=== PATIENT | male | born 1945 | race Caucasian/White ===

== ENCOUNTER 2018-10-05 14:52 | Inpatient (IN) | payer MEDICARE, BC ==
[~2018-10-05] VITALS: Ht 175.3 cm; Wt 114.6 kg
[2018-10-05] VITALS (8 sets, daily range): BP systolic 79–125; BP diastolic 44–77
[~2018-10-05 14:52] MED LIST: ALBU8HFA PO; AMIO200T36 PO; ASPI81TA52 PO; ATOR40TA7 PO; CARV-49 PO; CLOP75TA15 PO; DIPH25CA83 PO; IPRA3AMP31 INH; LEVO175T7 PO; LIDOcaine 2% (20mg/ml) 5ml vial ONE; NORepinephrine bitartrate 8 MG in NS 250 ML BAG (32 mcg/ml) IV ONE; SPIR50TA5 PO
--- NOTE | 2018-10-05 15:15 | NUR ---
Patient c/o increased left leg pain, burning in nature. Spoke with Dr. Roth regarding possible need for lidocaine 100 mg IO now. Unsure if patient had received lidocaine when IO was initiated. Dr. roth also stated to place verbal order for Fentanyl [address] Blas stated that he would be performing central line placement, Central line placement set up and ready for MD in room. CVP monitoring set up and ready after insertion. Will place x ray order for post central line placement per MD.
--- NOTE | 2018-10-05 15:20 | NUR ---
Lidocaine administered through IO. Will continue to monitor patients status.
[2018-10-05] MEDS ORDERED: fentaNYL/PF 50MCG/1 ML 2ML syringe ONE (15:24)
[2018-10-05] MEDS ORDERED: KETAMINE IV ONE (15:25)
[2018-10-05] MEDS ORDERED: fentaNYL/PF 50MCG/1 ML 2ML syringe IV ONE (15:25)
[2018-10-05] MEDS ORDERED: NORMAL SALINE IV ONE (15:25)
[2018-10-05] MEDS ORDERED: vancomycin/NS 1 GM ADD-VANTAGE 250 ML X 1 DOSE IV ONE (15:30)
[2018-10-05 15:31] LABS: CLARITY,URINE SLIGHTLY CLOUDY (Clear); COLOR,URINE YELLOW (Yellow); GLUCOSE, URINE NEGATIVE (Neg); KETONES,URINE TRACE mg/dl (Neg); LEUKOCYTE ESTERASE ,URINE NEGATIVE (Neg); NITRITES, URINE NEGATIVE (Neg); OCCULT BLOOD,URINE NEGATIVE (Neg); PH,URINE 5.5 (4.8-8.0); PROTEIN,URINE TRACE mg/dl (Neg); UROBILINOGEN,URINE 0.2 E.U/dL (0.2-1.0)
[2018-10-05 15:32] LABS: UA COLLECTION TYPE STRAIGHT CATH
[2018-10-05] MEDS ORDERED: LIDOcaine 2% (20 mg/ml) 5ml cardiac syringe IV STA (15:36)
[2018-10-05 15:43] LABS: BACTERIA,URINE 2+ /HPF (Neg); CELLULAR CAST 0-4 /LPF (NEGATIVE); MUCUS STRANDS FEW /LPF (Neg); SQUAMOUS EPITHELIAL CELL,UR FEW /LPF (FEW)
[2018-10-05 15:44] LABS: RBC,URINE 0-2 /HPF (0-2); RENAL CELLS, URINE FEW /HPF; TRANSITIONAL EPI CELLS,URINE FEW /HPF; WBC,URINE 0-4 /HPF (0-4)
[2018-10-05] MEDS: NORepinephrine 8mg/ 250ml NS 250 ML IV SCH ×2 (15:49→16:25)
--- NOTE | 2018-10-05 16:00 | NUR ---
Spoke with Dr. Roth regarding goal for levophed titration, He stated to keep SBP 90 mmHg and/or a MAP of 65 or greater.
[2018-10-05] MEDS ORDERED: normal saline 500ml IV soln 500 ML IV ONE (16:05)
--- NOTE | 2018-10-05 16:07 | NUR ---
Dr. Blas stated central line placement good and ok to start IV fluids.
[2018-10-05 16:14] LABS: BASOPHILS % (AUTO) 0.2 % (0-1); EOSINOPHILS % (AUTO) 0.1 % (0-6); HEMATOCRIT 41.3 % (42.0-52.0); HEMOGLOBIN 13.9 g/dl (14.0-17.9); LYMPHOCYTES # (AUTO) 0.5 X10'3 (1.1-4.8); LYMPHOCYTES % (AUTO) 3.2 % (21-51); MEAN CORPUSCULAR HEMOGLOBIN 33.9 PG (27.0-31.0); MEAN CORPUSCULAR HGB CONC 33.6 g/dL (33.0-36.5); MEAN CORPUSCULAR VOLUME 100.8 FL (78-98); MEAN PLATELET VOLUME 8.2 FL (7.4-10.4); MONOCYTES # (AUTO) 0.6 X10'3 (0-0.9); MONOCYTES % (AUTO) 4.1 % (2-12); NEUTROPHILS # (AUTO) 13.1 X10'3 (1.8-7.7); NEUTROPHILS % (AUTO) 92.4 % (42-75); PLATELET COUNT 170 X10'3 (140-440); RED BLOOD COUNT 4.09 X10'6 (4.70-6.10); RED CELL DISTRIBUTION WIDTH 15.8 % (11.5-14.5); WHITE BLOOD COUNT 14.2 X10'3 (4.5-11.0)
[2018-10-05 16:35] LABS: ALANINE AMINOTRANSFERASE 23 U/L (12-78); ALBUMIN 2.2 G/DL (3.4-5.0); ALBUMIN/GLOBULIN RATIO 0.8 (1.1-1.5); ALKALINE PHOSPHATASE 55 IU/L (46-116); ANION GAP 7 (8-16); ASPARTATE AMINO TRANSFERASE 21 U/L (10-37); BILIRUBIN,TOTAL 2.6 MG/DL (0.1-1.0); BLOOD UREA NITROGEN 53 MG/DL (7-18); BUN/CREATININE RATIO 18.9 (5.4-32.0); CALCIUM 8.1 MG/DL (8.5-10.1); CHLORIDE 97 MMOL/L (99-107); CREATININE 2.81 MG/DL (0.60-1.10); GLUCOSE 84 MG/DL (70-104); SODIUM 130 MMOL/L (135-145); TOTAL CARBON DIOXIDE 25.9 MMOL/L (24-32); eGFR 22 ML/MIN
[2018-10-05 16:37] LABS: PARTIAL THROMBOPLASTIN TIME 32 SECONDS (22-32)
--- NOTE | 2018-10-05 16:42 | NUR ---
Patient received a total of 2.5 L NS bolus, 1 L NS bolus from EMS and 1.5 L NS bolus ordered by Dr. Roth.
[2018-10-05 16:46] LABS: BURR CELLS 1+; PLATELET ESTIMATE NORMAL; TOTAL CELLS COUNTED 100
[2018-10-05] MEDS ORDERED: FLUT1DIS7 INH (16:48)
[2018-10-05] MEDS ORDERED: TIOT18CA3 IH (16:48)
[2018-10-05] MEDS ORDERED: CARV-49 PO (16:49)
[2018-10-05] MEDS ORDERED: FLUT1DIS4 INH (16:49)
[2018-10-05] MEDS ORDERED: SPIR50TA5 PO (16:50)
[2018-10-05] MEDS ORDERED: ATOR80TA PO (16:50)
[2018-10-05] MEDS ORDERED: AMIO200T27 PO (16:50)
[2018-10-05] MEDS ORDERED: FEXO180T94 PO (16:51)
[2018-10-05] MEDS ORDERED: FLO0.4C PO (16:51)
[2018-10-05] MEDS ORDERED: FURO-149 PO (16:51)
[2018-10-05] MEDS ORDERED: ASPI81TA30 PO (16:52)
[2018-10-05] MEDS ORDERED: LEVO175T2 PO (16:53)
[2018-10-05] MEDS ORDERED: IPRA3AMP31 IH (16:53)
[2018-10-05] MEDS ORDERED: POTA20TA19 PO (16:54)
[2018-10-05] MEDS ORDERED: TRAM50TA2 PO (16:54)
[2018-10-05] MEDS ORDERED: NORepinephrine 8mg/ 250ml NS 250 ML IV PRN ×2 (17:08→17:53)
[2018-10-05] MEDS ORDERED: potassium Cl 20mEq/100mL bag 100 ML IV PRN ×2 (17:10)
[2018-10-05] MEDS ORDERED: potassium Cl 20 mEq SR tablet PO PRN ×2 (17:10)
[2018-10-05] MEDS ORDERED: potassium CL 10mEq/100ml bag 100 ML IV PRN ×2 (17:10)
[2018-10-05] MEDS ORDERED: acetaminophen 325mg tablet PO PRN ×2 (17:10)
[2018-10-05] MEDS ORDERED: morphine 2 MG/ML inj. syringe IV PRN (17:10)
[2018-10-05] MEDS ORDERED: vancomycin/NS 1 GM ADD-VANTAGE 250 ML IV PRN (17:10)
[2018-10-05] MEDS ORDERED: morphine 4 MG/ML inj SYRINge IV PRN (17:10)
[2018-10-05 17:36] LABS: ABG BASE EXCESS -4.1 mmol/L (-2.0-3.0); ABG HCO3 20.1 mmol/L (22.0-26.0); ABG OXYGEN SATURATION 95.5 % (95-98); ABG PCO2 (T) 34.6 mmHg (35.0-48.0); ABG PH (T) 7.382 (7.350-7.450); ABG PO2 (T) 83.9 mmHg (83-108); ALLEN'S TEST Positive; FCOHb 2.3 % (0.5-1.5); FLOW 2 L/min; FMetHb 0.1 % (0.3-1.12); FO2Hb 93.2 % (94-100); TOTAL HEMOGLOBIN 14.8 G/dl (14.0-18.0)
[2018-10-05] MEDS: DOBUTamine-DoBUTrex 500mg/D5W 250 ML IV SCH (17:57)
[2018-10-05] MEDS: normal saline 1000ml 1,000 ML IV SCH (18:11)
[2018-10-05 18:25] LABS: TOTAL PROTEIN,URINE RANDOM 42.4 MG/DL
[2018-10-05] MEDS: docusate sod 100mg capsule PO SCH (19:43)
[2018-10-05] MEDS: heparin, porcine 5000 units/ml vial SQ SCH (19:43)
[2018-10-05 20:36] LABS: OXYGEN SATURATION (MIXED VEN) 64.5 % (60-80); PO2 MIXED VENOUS (TEMP COR) 37.1 mmHg (35-46)
[2018-10-05] MEDS: sennosides/docusate sodium tablet PO SCH (20:53)
[2018-10-05] MEDS: HYDROcodone/acetaminophen 10/325mg tab PO PRN (20:58)
[2018-10-05] MEDS: ondansetron/PF 4mg/2ml inj IV PRN (21:16)
[2018-10-05] MEDS ORDERED: ipratropium/albuterol 3ml nebule IH PRN (21:30)
[2018-10-05] MEDS ORDERED: ipratropium/albuterol 3ml nebule ONE (21:57)
[2018-10-05] MEDS ORDERED: HYDROmorphone 1 mg/ml syringe IV ONE (22:50)
[2018-10-06] VITALS (27 sets, daily range): BP systolic 82–114; BP diastolic 48–70
[2018-10-06] MEDS: NORepinephrine 8mg/ 250ml NS 250 ML IV SCH ×5 (00:02→21:40)
[2018-10-06] MEDS: VANCOMYCIN LEVEL IV SCH (02:44)
[2018-10-06] MEDS: normal saline 1000ml 1,000 ML IV SCH ×2 (02:45→14:45)
[2018-10-06 03:04] LABS: BASOPHILS % (AUTO) 0.3 % (0-1); EOSINOPHILS % (AUTO) 0 % (0-6); HEMATOCRIT 40.5 % (42.0-52.0); HEMOGLOBIN 13.7 g/dl (14.0-17.9); LYMPHOCYTES # (AUTO) 0.3 X10'3 (1.1-4.8); LYMPHOCYTES % (AUTO) 2.5 % (21-51); MEAN CORPUSCULAR HEMOGLOBIN 33.9 PG (27.0-31.0); MEAN CORPUSCULAR HGB CONC 33.8 g/dL (33.0-36.5); MEAN CORPUSCULAR VOLUME 100.2 FL (78-98); MEAN PLATELET VOLUME 8.4 FL (7.4-10.4); MONOCYTES # (AUTO) 0.5 X10'3 (0-0.9); MONOCYTES % (AUTO) 3.9 % (2-12); NEUTROPHILS # (AUTO) 12.9 X10'3 (1.8-7.7); NEUTROPHILS % (AUTO) 93.3 % (42-75); PLATELET COUNT 157 X10'3 (140-440); RED BLOOD COUNT 4.04 X10'6 (4.70-6.10); RED CELL DISTRIBUTION WIDTH 16.4 % (11.5-14.5); WHITE BLOOD COUNT 13.9 X10'3 (4.5-11.0)
[2018-10-06 03:32] LABS: ALANINE AMINOTRANSFERASE 26 U/L (12-78); ALBUMIN 2.1 G/DL (3.4-5.0); ALBUMIN/GLOBULIN RATIO 0.7 (1.1-1.5); ALKALINE PHOSPHATASE 58 IU/L (46-116); ANION GAP 8 (8-16); ASPARTATE AMINO TRANSFERASE 25 U/L (10-37); BILIRUBIN,TOTAL 1.7 MG/DL (0.1-1.0); BLOOD UREA NITROGEN 56 MG/DL (7-18); BUN/CREATININE RATIO 19.5 (5.4-32.0); CALCIUM 7.7 MG/DL (8.5-10.1); CHLORIDE 99 MMOL/L (99-107); CREATININE 2.87 MG/DL (0.60-1.10); GLUCOSE 96 MG/DL (70-104); MAGNESIUM 1.7 MG/DL (1.5-2.4); PHOSPHORUS 4.7 MG/DL (2.3-4.5); POTASSIUM 5.2 MMOL/L (3.5-5.1); SODIUM 131 MMOL/L (135-145); TOTAL PROTEIN 5.1 G/DL (6.4-8.2); VANCOMYCIN,RANDOM 14.1 UG/ML; eGFR 22 ML/MIN
[2018-10-06] MEDS: DOBUTamine-DoBUTrex 500mg/D5W 250 ML IV SCH ×2 (06:44→19:39)
[2018-10-06] MEDS: docusate sod 100mg capsule PO SCH ×2 (07:23→19:41)
[2018-10-06] MEDS: amiodarone 200mg tablet PO SCH (07:23)
[2018-10-06] MEDS: loratadine 10mg tablet PO SCH (07:23)
[2018-10-06] MEDS: atorvastatin 20mg tablet PO SCH (07:23)
[2018-10-06] MEDS: tamsulosin 0.4mg capsule PO SCH (07:23)
[2018-10-06] MEDS: levoTHYROXINE 175mcg tablet PO SCH (07:24)
[2018-10-06] MEDS: heparin, porcine 5000 units/ml vial SQ SCH ×2 (07:24→19:41)
[2018-10-06] MEDS: aspirin 81mg tab.chew PO SCH (07:31)
[2018-10-06] MEDS: budesonide 0.5mg/2ml UD nebule IH SCH ×2 (08:00→19:28)
[2018-10-06] MEDS ORDERED: carvedilol 6.25mg tablet PO SCH (08:00)
[2018-10-06] MEDS: ipratropium 0.5 MG/2.5ML nebule IH SCH ×3 (08:00→19:28)
[2018-10-06] MEDS: albuterol 2.5 MG/3 ML nebule NEB SCH ×3 (08:00→19:28)
[2018-10-06] MEDS: potassium Cl 20 mEq SR tablet PO SCH (08:00)
[2018-10-06] MEDS ORDERED: furosemide 40mg tablet PO SCH (08:00)
[2018-10-06] MEDS ORDERED: spironolactone 50 MG tablet PO SCH (08:00)
[2018-10-06] MEDS: HYDROcodone/acetaminophen 10/325mg tab PO PRN ×2 (09:11→20:27)
[2018-10-06] MEDS ORDERED: NORepinephrine 8mg/ 250ml NS 250 ML IV ONE (11:42)
[2018-10-06] MEDS: HYDROmorphone 1 mg/ml syringe IV PRN ×2 (12:47→22:06)
[2018-10-06] MEDS ORDERED: piperacillin/tazo 3.375gm/50ml 50 ML IV SCH (12:55)
[2018-10-06] MEDS: CefTRIAXone 2gm/D5W 50ml 50 ML IV SCH (14:02)
[2018-10-06] MEDS: linezolid 600mg tablet PO SCH ×2 (14:33→19:41)
--- NOTE | 2018-10-06 14:37 | NUR ---
Patient presented to ED with recurrent BLE cellulitis, h/o CHF, COPD, CAD, and CABG, every day smoker and h/o heavy EtOH. Patient has increased protein needs r/t infection. Appetite is fair, he ate 50% of his meat at breakfast. Diet was changed after breakfast to pureed by RN. with change in diet hopefully will improve PO intake. Pt very sleepy when seen by RD, will attempt bedside interview tomorrow and to provide high protein education. Recommend: 1. continue pureed diet 2. provide high protein ed and monitor need for ONS or additional protein 3. Weight per rx Addendum: 10/06/18 at [address] Amended: Links added.
--- NOTE | 2018-10-06 19:18 | NUR ---
MRSA nare cx to lab. Patient is alert and oriented. BP cuff to RUE 73/50 (59), LUE 89/50 (68), exchanged for a large cuff RUE 90/57 (68), LUE 75/50 (58). Dobutamine at 5 ug/kg/min. non-titratable per order. Levophed 29 ug/min - titrating for MAP 60 mmhg per order. Mentation WNL. Breathing is wheezy at times. Lungs B/L sound wet. Strong cough and swallows sputum. B/L LE are barajas red from mid thigh down equally. Hot to the touch mid thigh to mid calf B/L. Mid calf to toes cool to the touch though reddened. See pictures in bedside chart for wounds/discoloration - no changes from the pictures. Wounds LINE SERVER. right top of foot with yellow/green tissue. Quarter sized open area to right medial calf - [place], large bruising across abdomen greater as move to left side of abdomen. Patient states "it has been like that for weeks". No acute changes from that given in report. U/O minimal, dark belem. Patient ate pudding dish without complication. Refused the meal due to "too bland". I offered Mrs. Hanley however patient refused. All procedures explained prior to performing.
[2018-10-06] MEDS: lactobacillus rhamnosus 10,000 MMU CELLS/CAPSULE PO SCH (19:41)
[2018-10-06] MEDS: sennosides/docusate sodium tablet PO SCH (20:27)
[2018-10-07] VITALS (26 sets, daily range): BP systolic 73–124; BP diastolic 40–70
[2018-10-07] MEDS: NORepinephrine 8mg/ 250ml NS 250 ML IV SCH ×3 (02:14→15:22)
[2018-10-07] MEDS: albuterol 2.5 MG/3 ML nebule NEB SCH ×3 (03:10→14:00)
[2018-10-07] MEDS: VANCOMYCIN LEVEL IV SCH (03:10)
[2018-10-07] MEDS: ipratropium 0.5 MG/2.5ML nebule IH SCH ×3 (03:11→14:00)
[2018-10-07] MEDS: HYDROmorphone 1 mg/ml syringe IV PRN ×6 (03:41→19:38)
[2018-10-07 03:48] LABS: BASOPHILS # (AUTO) 0.1 X10'3 (0-0.2); BASOPHILS % (AUTO) 0.5 % (0-1); EOSINOPHILS % (AUTO) 0.1 % (0-6); HEMATOCRIT 39.2 % (42.0-52.0); HEMOGLOBIN 12.9 g/dl (14.0-17.9); LYMPHOCYTES # (AUTO) 0.3 X10'3 (1.1-4.8); LYMPHOCYTES % (AUTO) 2.8 % (21-51); MEAN CORPUSCULAR HEMOGLOBIN 33.6 PG (27.0-31.0); MEAN CORPUSCULAR HGB CONC 32.8 g/dL (33.0-36.5); MEAN CORPUSCULAR VOLUME 102.3 FL (78-98); MEAN PLATELET VOLUME 8.6 FL (7.4-10.4); MONOCYTES # (AUTO) 0.6 X10'3 (0-0.9); MONOCYTES % (AUTO) 5.6 % (2-12); NEUTROPHILS # (AUTO) 10.3 X10'3 (1.8-7.7); PLATELET COUNT 153 X10'3 (140-440); RED BLOOD COUNT 3.83 X10'6 (4.70-6.10); RED CELL DISTRIBUTION WIDTH 16.8 % (11.5-14.5); WHITE BLOOD COUNT 11.4 X10'3 (4.5-11.0)
[2018-10-07 04:03] LABS: ALANINE AMINOTRANSFERASE 28 U/L (12-78); ALBUMIN 1.8 G/DL (3.4-5.0); ALBUMIN/GLOBULIN RATIO 0.6 (1.1-1.5); ALKALINE PHOSPHATASE 59 IU/L (46-116); ANION GAP 7 (8-16); ASPARTATE AMINO TRANSFERASE 24 U/L (10-37); BILIRUBIN,TOTAL 0.9 MG/DL (0.1-1.0); BLOOD UREA NITROGEN 57 MG/DL (7-18); BUN/CREATININE RATIO 19.9 (5.4-32.0); CALCIUM 7.7 MG/DL (8.5-10.1); CHLORIDE 101 MMOL/L (99-107); CREATININE 2.87 MG/DL (0.60-1.10); GLUCOSE 122 MG/DL (70-104); MAGNESIUM 1.9 MG/DL (1.5-2.4); PHOSPHORUS 4.3 MG/DL (2.3-4.5); POTASSIUM 5.2 MMOL/L (3.5-5.1); SODIUM 131 MMOL/L (135-145); TOTAL CARBON DIOXIDE 23.1 MMOL/L (24-32); TOTAL PROTEIN 4.9 G/DL (6.4-8.2); VANCOMYCIN,RANDOM 10.3 UG/ML; eGFR 22 ML/MIN
[2018-10-07] MEDS: budesonide 0.5mg/2ml UD nebule IH SCH ×2 (07:37→19:21)
[2018-10-07] MEDS: potassium Cl 20 mEq SR tablet PO SCH (08:00)
[2018-10-07] MEDS: atorvastatin 20mg tablet PO SCH (09:42)
[2018-10-07] MEDS: docusate sod 100mg capsule PO SCH ×2 (09:42→19:38)
[2018-10-07] MEDS: lactobacillus rhamnosus 10,000 MMU CELLS/CAPSULE PO SCH ×2 (09:42→19:38)
[2018-10-07] MEDS: aspirin 81mg tab.chew PO SCH (09:42)
[2018-10-07] MEDS: linezolid 600mg tablet PO SCH ×2 (09:42→19:38)
[2018-10-07] MEDS: amiodarone 200mg tablet PO SCH (09:42)
[2018-10-07] MEDS: CefTRIAXone 2gm/D5W 50ml 50 ML IV SCH (09:42)
[2018-10-07] MEDS: levoTHYROXINE 175mcg tablet PO SCH (09:43)
[2018-10-07] MEDS: heparin, porcine 5000 units/ml vial SQ SCH ×2 (09:43→19:38)
[2018-10-07] MEDS: loratadine 10mg tablet PO SCH (09:43)
[2018-10-07] MEDS: tamsulosin 0.4mg capsule PO SCH (09:45)
[2018-10-07] MEDS: normal saline 1000ml 1,000 ML IV SCH (10:22)
[2018-10-07] MEDS: DOBUTamine-DoBUTrex 500mg/D5W 250 ML IV SCH (12:17)
[2018-10-07] MEDS: cefepime 1GM/NS ADD-VANTAGE 100 ML IV SCH ×2 (14:27→19:38)
--- NOTE | 2018-10-07 15:22 | NUR ---
WOUND INFECTION EDUCATION PROVIDED BY WOUND CARE 1. Patient instructed to call their primary doctor, or go the ED immediately if any of the following symptoms occur: * Increased pain in wound * Increase in drainage from the wound * Redness in the skin surrounding the wound * Warmth in the skin surrounding the wound * Bleeding from the wound * Temperature of 101 or greater 2. If any of these occur while in the hospital tell a nurse immediately. Addendum: 10/07/18 at 1522 by Sammy Ambriz RN Amended: Links added.
--- NOTE | 2018-10-07 16:44 | NUR ---
Follow up: patient's diet changed to pureed foods and nectar thick liquids per SUPERVISOR CLAIMS. Patient is still eating about 25% for two days, poor PO for two days likely r/t falling asleep frequently. Per teaching record note patient has confusion after falling asleep and waking up, needing reinforcement for eds, patient is needing high protein education r/t sepsis and low tyramine education handout r/t taking zyvox, will monitor for appropriate time to provide patient with education. Patient presented to ED with recurrent BLE cellulitis, h/o CHF, COPD, CAD, and CABG, every day smoker and h/o heavy EtOH. Patient has increased protein needs r/t infection. Appetite is fair, he ate 50% of his meat at breakfast. Diet was changed after breakfast to pureed by RN. with change in diet hopefully will improve PO intake. Pt very sleepy when seen by RD, will attempt bedside interview tomorrow and to provide high protein education. Recommend: 1. continue pureed diet 2. provide high protein ed and monitor need for ONS or additional protein 3. Weight per rx Addendum: 10/07/18 at [address] Amended: Links added.
--- NOTE | 2018-10-07 18:26 | NUR ---
[employer] ICD/pacer tach pulse generator. spoke to rep regarding questionable improper sensing of spike, ekg secure faxed. waiting for call back.
[2018-10-07] MEDS: ipratropium/albuterol 3ml nebule NEB SCH (19:21)
[2018-10-07] MEDS: sennosides/docusate sodium tablet PO SCH (21:09)
--- NOTE | 2018-10-07 21:20 | NUR ---
[employer] returned call after receiving EKG, said that the pacer spikes are "pseudo-fusion beats" due to the pt's underlying afib, and interrogation isn't necessary at this time.
[2018-10-08] VITALS (24 sets, daily range): BP systolic 85–120; BP diastolic 40–70
[2018-10-08] MEDS: HYDROmorphone 1 mg/ml syringe IV PRN ×4 (01:36→18:54)
[2018-10-08] MEDS: DOBUTamine-DoBUTrex 500mg/D5W 250 ML IV SCH ×3 (02:00→17:58)
[2018-10-08] MEDS: ipratropium/albuterol 3ml nebule NEB SCH ×4 (02:38→20:29)
[2018-10-08 03:18] LABS: BASOPHILS % (AUTO) 0.2 % (0-1); LYMPHOCYTES # (AUTO) 0.4 X10'3 (1.1-4.8); LYMPHOCYTES % (AUTO) 2.7 % (21-51); NEUTROPHILS # (AUTO) 11.7 X10'3 (1.8-7.7); RED CELL DISTRIBUTION WIDTH 16.5 % (11.5-14.5); WHITE BLOOD COUNT 13.1 X10'3 (4.5-11.0)
[2018-10-08 03:21] LABS: EOSINOPHILS % (AUTO) 0.1 % (0-6); HEMATOCRIT 38.4 % (42.0-52.0); HEMOGLOBIN 12.6 g/dl (14.0-17.9); MEAN CORPUSCULAR HEMOGLOBIN 33.5 PG (27.0-31.0); MEAN CORPUSCULAR HGB CONC 32.9 g/dL (33.0-36.5); MEAN CORPUSCULAR VOLUME 101.7 FL (78-98); MEAN PLATELET VOLUME 8.2 FL (7.4-10.4); MONOCYTES % (AUTO) 7.6 % (2-12); NEUTROPHILS % (AUTO) 89.4 % (42-75); PLATELET COUNT 142 X10'3 (140-440); RED BLOOD COUNT 3.77 X10'6 (4.70-6.10)
[2018-10-08 03:37] LABS: ALANINE AMINOTRANSFERASE 25 U/L (12-78); ALBUMIN 1.8 G/DL (3.4-5.0); ALBUMIN/GLOBULIN RATIO 0.5 (1.1-1.5); ALKALINE PHOSPHATASE 66 IU/L (46-116); ANION GAP 10 (8-16); ASPARTATE AMINO TRANSFERASE 20 U/L (10-37); BILIRUBIN,TOTAL 0.7 MG/DL (0.1-1.0); BLOOD UREA NITROGEN 60 MG/DL (7-18); CALCIUM 8.1 MG/DL (8.5-10.1); CHLORIDE 101 MMOL/L (99-107); CREATINE KINASE 99 U/L (39-308); CREATININE 2.73 MG/DL (0.60-1.10); GLUCOSE 129 MG/DL (70-104); MAGNESIUM 1.9 MG/DL (1.5-2.4); PHOSPHORUS 4.3 MG/DL (2.3-4.5); POTASSIUM 5.4 MMOL/L (3.5-5.1); SODIUM 133 MMOL/L (135-145); TOTAL CARBON DIOXIDE 22.5 MMOL/L (24-32); TOTAL PROTEIN 5.2 G/DL (6.4-8.2); eGFR 23 ML/MIN
[2018-10-08 04:44] LABS: ANISOCYTOSIS 1+; BURR CELLS 1+; PLATELET ESTIMATE NORMAL; TOTAL CELLS COUNTED 100
[2018-10-08 04:45] LABS: POLYCHROMASIA FEW
[2018-10-08] MEDS: normal saline 1000ml 1,000 ML IV SCH (05:30)
[2018-10-08] MEDS: NORepinephrine 8mg/ 250ml NS 250 ML IV SCH ×3 (06:45→21:42)
[2018-10-08] MEDS: potassium Cl 20 mEq SR tablet PO SCH (08:00)
[2018-10-08] MEDS: budesonide 0.5mg/2ml UD nebule IH SCH ×2 (08:50→20:29)
[2018-10-08] MEDS: amiodarone 200mg tablet PO SCH (08:55)
[2018-10-08] MEDS: atorvastatin 20mg tablet PO SCH (08:55)
[2018-10-08] MEDS: cefepime 1GM/NS ADD-VANTAGE 100 ML IV SCH ×2 (08:55→21:01)
[2018-10-08] MEDS: levoTHYROXINE 175mcg tablet PO SCH (08:55)
[2018-10-08] MEDS: tamsulosin 0.4mg capsule PO SCH (08:55)
[2018-10-08] MEDS: lactobacillus rhamnosus 10,000 MMU CELLS/CAPSULE PO SCH ×2 (08:56→21:01)
[2018-10-08] MEDS: loratadine 10mg tablet PO SCH (08:56)
[2018-10-08] MEDS: linezolid 600mg tablet PO SCH ×2 (08:56→21:01)
[2018-10-08] MEDS: aspirin 81mg tab.chew PO SCH (08:56)
[2018-10-08] MEDS: docusate sod 100mg capsule PO SCH ×2 (08:57→21:02)
[2018-10-08] MEDS: heparin, porcine 5000 units/ml vial SQ SCH ×3 (08:58→21:02)
--- NOTE | 2018-10-08 11:19 | NUR ---
Reassessment: Per MD notes slow improvement with BLE cellulitis and pt with septic shock. Pt continues with 0-25% PO intake on pureed food with nectar thick liquids not meeting nutrient needs. Recommend nectar thick Med Plus NSA 2.0 ONS TID, d/w dietary. Each serving will provide: 480 kcal, 17 g fat, 62 g CHO, 20 g protein, 304 mg K, and 420 mg Phos. Pt continues to be not appropriate for low tyramine education at this time as pt documented as A/O x 3 and confused. Will continue to follow. Patient presented to ED with recurrent BLE cellulitis, h/o CHF, COPD, CAD, and CABG, every day smoker and h/o heavy EtOH. Patient has increased protein needs r/t infection. Appetite is fair, he ate 50% of his meat at breakfast. Diet was changed after breakfast to pureed by RN. with change in diet hopefully will improve PO intake. Pt very sleepy when seen by RD, will attempt bedside interview tomorrow and to provide high protein education. Recommend: 1. continue pureed diet with nectar thick liquids per ST recs 2. [place] thick Med Plus NSA 2.0 TID 3. provide high protein ed and low tyramine ed prior to d/c once appropriate 4. Weight per rx Addendum: 10/08/18 at [address] Amended: Links added.
--- NOTE | 2018-10-08 15:00 | NUR ---
Pt. increasingly confused, complaining of pinching pain underneath left leg. Gabapentin given per provider Arden order.
[2018-10-08] MEDS ORDERED: gabapentin 100mg capsule PO ONE (17:00)
--- NOTE | 2018-10-08 17:43 | NUR ---
Patient in room [facility] 2011. I have received report from edith lizama RN and had the opportunity to ask questions and assume patient care. Addendum: 10/08/18 at 8704 by Irene Oreilly RN Report given at 10/08 5385
[2018-10-08] MEDS: sennosides/docusate sodium tablet PO SCH (21:01)
[2018-10-09] VITALS (24 sets, daily range): BP systolic 80–127; BP diastolic 50–90
[2018-10-09] MEDS: HYDROmorphone 1 mg/ml syringe IV PRN ×2 (01:18→20:07)
--- NOTE | 2018-10-09 01:30 | NUR ---
RN Note -MD Communication Called Favio Morrison regarding pt agitation and yelling out/ low blood pressure on Levo. Received order for precedex
[2018-10-09] MEDS: ipratropium/albuterol 3ml nebule NEB SCH ×4 (02:40→20:32)
[2018-10-09 02:49] LABS: BASOPHILS % (AUTO) 0.3 % (0-1); EOSINOPHILS % (AUTO) 0.1 % (0-6); HEMATOCRIT 37.7 % (42.0-52.0); HEMOGLOBIN 12.6 g/dl (14.0-17.9); LYMPHOCYTES # (AUTO) 0.3 X10'3 (1.1-4.8); LYMPHOCYTES % (AUTO) 2.3 % (21-51); MEAN CORPUSCULAR HEMOGLOBIN 33.9 PG (27.0-31.0); MEAN CORPUSCULAR HGB CONC 33.4 g/dL (33.0-36.5); MEAN CORPUSCULAR VOLUME 101.6 FL (78-98); MEAN PLATELET VOLUME 8.2 FL (7.4-10.4); MONOCYTES # (AUTO) 1.1 X10'3 (0-0.9); MONOCYTES % (AUTO) 8.9 % (2-12); NEUTROPHILS # (AUTO) 10.9 X10'3 (1.8-7.7); NEUTROPHILS % (AUTO) 88.4 % (42-75); PLATELET COUNT 132 X10'3 (140-440); RED BLOOD COUNT 3.71 X10'6 (4.70-6.10); RED CELL DISTRIBUTION WIDTH 16.7 % (11.5-14.5); WHITE BLOOD COUNT 12.3 X10'3 (4.5-11.0)
[2018-10-09] MEDS: dexmedetomidin/NS 400mcg/100ml 100 ML IV SCH ×3 (02:54→19:46)
[2018-10-09 03:16] LABS: ALANINE AMINOTRANSFERASE 26 U/L (12-78); ALBUMIN 1.8 G/DL (3.4-5.0); ALBUMIN/GLOBULIN RATIO 0.5 (1.1-1.5); ALKALINE PHOSPHATASE 71 IU/L (46-116); ANION GAP 10 (8-16); ASPARTATE AMINO TRANSFERASE 25 U/L (10-37); BILIRUBIN,TOTAL 0.8 MG/DL (0.1-1.0); BLOOD UREA NITROGEN 62 MG/DL (7-18); BUN/CREATININE RATIO 23.5 (5.4-32.0); CALCIUM 7.8 MG/DL (8.5-10.1); CHLORIDE 103 MMOL/L (99-107); CREATININE 2.64 MG/DL (0.60-1.10); GLUCOSE 101 MG/DL (70-104); POTASSIUM 5.4 MMOL/L (3.5-5.1); SODIUM 134 MMOL/L (135-145); TOTAL CARBON DIOXIDE 21.1 MMOL/L (24-32); TOTAL PROTEIN 5.2 G/DL (6.4-8.2); eGFR 24 ML/MIN
[2018-10-09] MEDS: DOBUTamine-DoBUTrex 500mg/D5W 250 ML IV SCH ×2 (05:16→17:55)
[2018-10-09] MEDS: normal saline 1000ml 1,000 ML IV SCH (05:17)
[2018-10-09] MEDS: NORepinephrine 8mg/ 250ml NS 250 ML IV SCH ×3 (05:17→23:02)
[2018-10-09] MEDS: docusate sod 100mg capsule PO SCH ×2 (08:00→19:34)
[2018-10-09] MEDS: potassium Cl 20 mEq SR tablet PO SCH (08:00)
[2018-10-09] MEDS: cefepime 1GM/NS ADD-VANTAGE 100 ML IV SCH ×2 (08:32→19:34)
[2018-10-09] MEDS: atorvastatin 20mg tablet PO SCH (08:33)
[2018-10-09] MEDS: lactobacillus rhamnosus 10,000 MMU CELLS/CAPSULE PO SCH ×2 (08:33→19:35)
[2018-10-09] MEDS: tamsulosin 0.4mg capsule PO SCH (08:33)
[2018-10-09] MEDS: loratadine 10mg tablet PO SCH (08:33)
[2018-10-09] MEDS: aspirin 81mg tab.chew PO SCH (08:33)
[2018-10-09] MEDS: levoTHYROXINE 175mcg tablet PO SCH (08:34)
[2018-10-09] MEDS: heparin, porcine 5000 units/ml vial SQ SCH ×2 (08:34→19:35)
[2018-10-09] MEDS: linezolid 600mg tablet PO SCH ×2 (08:34→19:34)
[2018-10-09] MEDS: amiodarone 200mg tablet PO SCH (08:34)
[2018-10-09] MEDS: budesonide 0.5mg/2ml UD nebule IH SCH ×2 (09:01→20:32)
--- NOTE | 2018-10-09 17:00 | NUR ---
Pt. tolerating small bites of diet. Tolerating sedation. Wounds changed. Levo titrated to 18mcg
--- NOTE | 2018-10-09 18:30 | NUR ---
Patient in room CICU 2012. I have received report from Irene BOTELLO and had the opportunity to ask questions and assume patient care.
--- NOTE | 2018-10-09 18:35 | NUR ---
Problems reprioritized. Patient report given, questions answered & plan of care reviewed with Eduarda BOTELLO.
[2018-10-09] MEDS: sennosides/docusate sodium tablet PO SCH (20:04)
[2018-10-10] VITALS (24 sets, daily range): BP systolic 88–134; BP diastolic 51–85
[2018-10-10] MEDS: normal saline 1000ml 1,000 ML IV SCH ×2 (00:11→18:42)
[2018-10-10] MEDS: dexmedetomidin/NS 400mcg/100ml 100 ML IV SCH (00:12)
[2018-10-10] MEDS: ipratropium/albuterol 3ml nebule NEB SCH ×4 (02:27→20:23)
[2018-10-10 03:10] LABS: BASOPHILS % (AUTO) 0.4 % (0-1); EOSINOPHILS % (AUTO) 0.3 % (0-6); HEMATOCRIT 40.2 % (42.0-52.0); LYMPHOCYTES # (AUTO) 0.4 X10'3 (1.1-4.8); LYMPHOCYTES % (AUTO) 3.2 % (21-51); MEAN CORPUSCULAR HEMOGLOBIN 33.2 PG (27.0-31.0); MEAN CORPUSCULAR HGB CONC 32.4 g/dL (33.0-36.5); MEAN CORPUSCULAR VOLUME 102.7 FL (78-98); MEAN PLATELET VOLUME 8.6 FL (7.4-10.4); MONOCYTES # (AUTO) 0.9 X10'3 (0-0.9); MONOCYTES % (AUTO) 8.5 % (2-12); NEUTROPHILS # (AUTO) 9.7 X10'3 (1.8-7.7); NEUTROPHILS % (AUTO) 87.6 % (42-75); PLATELET COUNT 126 X10'3 (140-440); RED BLOOD COUNT 3.91 X10'6 (4.70-6.10); RED CELL DISTRIBUTION WIDTH 16.9 % (11.5-14.5)
[2018-10-10 03:29] LABS: ALANINE AMINOTRANSFERASE 26 U/L (12-78); ALBUMIN 1.7 G/DL (3.4-5.0); ALBUMIN/GLOBULIN RATIO 0.5 (1.1-1.5); ALKALINE PHOSPHATASE 73 IU/L (46-116); ANION GAP 7 (8-16); ASPARTATE AMINO TRANSFERASE 22 U/L (10-37); BILIRUBIN,TOTAL 0.7 MG/DL (0.1-1.0); BLOOD UREA NITROGEN 61 MG/DL (7-18); BUN/CREATININE RATIO 25.3 (5.4-32.0); CALCIUM 8.2 MG/DL (8.5-10.1); CHLORIDE 104 MMOL/L (99-107); CREATININE 2.41 MG/DL (0.60-1.10); GLUCOSE 135 MG/DL (70-104); POTASSIUM 5.4 MMOL/L (3.5-5.1); SODIUM 132 MMOL/L (135-145); TOTAL CARBON DIOXIDE 20.6 MMOL/L (24-32); TOTAL PROTEIN 5.1 G/DL (6.4-8.2); eGFR 26 ML/MIN
[2018-10-10 03:32] LABS: PHOSPHORUS 3.9 MG/DL (2.3-4.5)
[2018-10-10 04:47] LABS: TOTAL CELLS COUNTED 100
[2018-10-10 04:48] LABS: ANISOCYTOSIS 1+; BURR CELLS 2+; PLATELET ESTIMATE DECREASED
[2018-10-10] MEDS: HYDROmorphone 1 mg/ml syringe IV PRN ×5 (04:59→23:51)
[2018-10-10] MEDS: NORepinephrine 8mg/ 250ml NS 250 ML IV SCH ×2 (06:02→18:32)
[2018-10-10] MEDS: tamsulosin 0.4mg capsule PO SCH (08:00)
[2018-10-10] MEDS: amiodarone 200mg tablet PO SCH (08:00)
[2018-10-10] MEDS: atorvastatin 20mg tablet PO SCH (08:00)
[2018-10-10] MEDS: levoTHYROXINE 175mcg tablet PO SCH (08:00)
[2018-10-10] MEDS: loratadine 10mg tablet PO SCH (08:00)
[2018-10-10] MEDS: potassium Cl 20 mEq SR tablet PO SCH (08:00)
[2018-10-10] MEDS: lactobacillus rhamnosus 10,000 MMU CELLS/CAPSULE PO SCH ×2 (08:00→20:00)
[2018-10-10] MEDS: docusate sod 100mg capsule PO SCH ×2 (08:00→20:00)
[2018-10-10] MEDS: linezolid 600mg tablet PO SCH ×2 (08:00→20:00)
[2018-10-10] MEDS: budesonide 0.5mg/2ml UD nebule IH SCH ×2 (08:15→20:23)
[2018-10-10] MEDS: aspirin 81mg tab.chew PO SCH (08:30)
[2018-10-10] MEDS: DOBUTamine-DoBUTrex 500mg/D5W 250 ML IV SCH ×2 (08:36→22:45)
[2018-10-10] MEDS: cefepime 1GM/NS ADD-VANTAGE 100 ML IV SCH ×2 (08:37→19:58)
[2018-10-10] MEDS: heparin, porcine 5000 units/ml vial SQ SCH ×2 (08:38→19:59)
--- NOTE | 2018-10-10 09:25 | NUR ---
Patient in room CICU 2011. I have received report from Candace BOTELLO and had the opportunity to ask questions and assume patient care. patient laying in bed snoring, vital signs stable will continue to monitor
--- NOTE | 2018-10-10 11:00 | NUR ---
patient very painful laying in bed moaning and crying out "owe", wound care at bedside to do dressing change, pre-medicated patient before they started the dressing change.
--- NOTE | 2018-10-10 11:25 | NUR ---
Reassessment: Pt continues with 0-25% PO intake on pureed food with nectar thick liquids not meeting nutrient needs, now five days with poor PO. Per bedside RN, patient is also refusing medications, per physical assessment pt is confused, yells out frequently. May benefit from NG tube for meds and nutrition if continues more than 7 days with poor PO, RN discussed NG tube with , NG tube will not be placed at this time. Recommend to continue nectar thick Med Plus NSA 2.0 ONS TID, d/w dietary. Each serving will provide: 480 kcal, 17 g fat, 62 g CHO, 20 g protein, 304 mg K, and 420 mg Phos. Pt continues to be not appropriate for low tyramine education at this time as pt documented as A/O x 3 and confused. Will continue to follow. Recommend: 1. continue pureed diet with nectar thick liquids per ST recs, pt is needs a feeder 2. [place] thick Med Plus NSA 2.0 TID 3. provide high protein ed and low tyramine ed prior to d/c once appropriate 4. Weight per rx 5. May benefit from tube feeding in view of very poor PO intake for 5 days Addendum: 10/10/18 at [address] Amended: Links added.
--- NOTE | 2018-10-10 11:57 | NUR ---
I have reviewed and agree with all medications administered and interventions performed by [facility] Student(adelaide morales) Addendum: 10/10/18 at 1158 by Brisa Roberts RT Amended: Links added.
[2018-10-10] MEDS: HYDROcodone/acetaminophen 10/325mg tab PO PRN ×2 (13:56→19:08)
--- NOTE | 2018-10-10 14:30 | NUR ---
called Dr. Wei as patient is still in a great deal of pain and yelling out saying "owe" Dr. Wei gave a one time dose of .5mg of dilaudid, vital signs stable will continue to monitor
[2018-10-10] MEDS ORDERED: HYDROmorphone inj. 0.5 MG/0.5 ML DISP.SYRIN IM ONE (15:20)
[2018-10-10] MEDS ORDERED: HYDROmorphone inj. 0.5 MG/0.5 ML DISP.SYRIN IV ONE (15:25)
--- NOTE | 2018-10-10 18:30 | NUR ---
Patient in room CICU 2011. I have received report from Natalie BOTELLO and had the opportunity to ask questions and assume patient care. Pt responds appropriately to questioning but then immediately returns to calling out:"OWW!" Refusing dinner. Titrating Levophed to keep MAP greater than 60.
[2018-10-10] MEDS: ondansetron/PF 4mg/2ml inj IV PRN (20:13)
[2018-10-10] MEDS: sennosides/docusate sodium tablet PO SCH (21:00)
[2018-10-10] MEDS ORDERED: LORazepam 2 mg/ml vial IM ONE (21:25)
[2018-10-10] MEDS ORDERED: LORazepam 2 mg/ml vial IV ONE (21:40)
[2018-10-11] VITALS (24 sets, daily range): BP systolic 81–111; BP diastolic 47–69
--- NOTE | 2018-10-11 01:38 | NUR ---
Pt less agitated p/ativan. Pain well controlled during dressing change with Dilaudid IV given for 7-10 pain level per non verbal scale.
[2018-10-11] MEDS: ipratropium/albuterol 3ml nebule NEB SCH ×4 (02:30→20:18)
[2018-10-11 03:33] LABS: BASOPHILS % (AUTO) 0.3 % (0-1); EOSINOPHILS % (AUTO) 0.5 % (0-6); HEMATOCRIT 39.6 % (42.0-52.0); HEMOGLOBIN 13.2 g/dl (14.0-17.9); LYMPHOCYTES # (AUTO) 0.4 X10'3 (1.1-4.8); LYMPHOCYTES % (AUTO) 3.7 % (21-51); MEAN CORPUSCULAR HEMOGLOBIN 33.8 PG (27.0-31.0); MEAN CORPUSCULAR HGB CONC 33.4 g/dL (33.0-36.5); MEAN CORPUSCULAR VOLUME 101.2 FL (78-98); MEAN PLATELET VOLUME 8.4 FL (7.4-10.4); MONOCYTES # (AUTO) 0.7 X10'3 (0-0.9); MONOCYTES % (AUTO) 6.8 % (2-12); NEUTROPHILS # (AUTO) 8.6 X10'3 (1.8-7.7); NEUTROPHILS % (AUTO) 88.7 % (42-75); PLATELET COUNT 136 X10'3 (140-440); RED BLOOD COUNT 3.91 X10'6 (4.70-6.10); RED CELL DISTRIBUTION WIDTH 16.6 % (11.5-14.5); WHITE BLOOD COUNT 9.7 X10'3 (4.5-11.0)
[2018-10-11 03:44] LABS: ALANINE AMINOTRANSFERASE 26 U/L (12-78); ALBUMIN 1.7 G/DL (3.4-5.0); ALBUMIN/GLOBULIN RATIO 0.5 (1.1-1.5); ALKALINE PHOSPHATASE 81 IU/L (46-116); ANION GAP 10 (8-16); ASPARTATE AMINO TRANSFERASE 20 U/L (10-37); BILIRUBIN,TOTAL 0.7 MG/DL (0.1-1.0); BLOOD UREA NITROGEN 62 MG/DL (7-18); BUN/CREATININE RATIO 24.8 (5.4-32.0); CHLORIDE 104 MMOL/L (99-107); GLUCOSE 110 MG/DL (70-104); MAGNESIUM 1.8 MG/DL (1.5-2.4); PHOSPHORUS 3.6 MG/DL (2.3-4.5); POTASSIUM 5.5 MMOL/L (3.5-5.1); SODIUM 134 MMOL/L (135-145); TOTAL CARBON DIOXIDE 19.8 MMOL/L (24-32); TOTAL PROTEIN 5.3 G/DL (6.4-8.2); eGFR 25 ML/MIN
--- NOTE | 2018-10-11 04:23 | NUR ---
AM labs reviewed, results called to Denise. No new orders at this time.
[2018-10-11] MEDS: HYDROmorphone 1 mg/ml syringe IV PRN ×4 (04:29→16:24)
--- NOTE | 2018-10-11 06:15 | NUR ---
Patient in room CICU 2011. I have received report from ROSMERY Avilez and had the opportunity to ask questions and assume patient care.
--- NOTE | 2018-10-11 06:39 | NUR ---
Problems reprioritized. Patient report given, questions answered & plan of care reviewed with Esme BOTELLO.
[2018-10-11] MEDS: potassium Cl 20 mEq SR tablet PO SCH (06:56)
[2018-10-11] MEDS: HYDROcodone/acetaminophen 10/325mg tab PO PRN ×4 (07:29→21:01)
[2018-10-11] MEDS: cefepime 1GM/NS ADD-VANTAGE 100 ML IV SCH ×2 (07:29→20:12)
[2018-10-11] MEDS: aspirin 81mg tab.chew PO SCH (07:30)
[2018-10-11] MEDS: tamsulosin 0.4mg capsule PO SCH (07:30)
[2018-10-11] MEDS: loratadine 10mg tablet PO SCH (07:30)
[2018-10-11] MEDS: docusate sod 100mg capsule PO SCH ×2 (07:30→20:00)
[2018-10-11] MEDS: levoTHYROXINE 175mcg tablet PO SCH (07:30)
[2018-10-11] MEDS: amiodarone 200mg tablet PO SCH (07:30)
[2018-10-11] MEDS: atorvastatin 20mg tablet PO SCH (07:30)
[2018-10-11] MEDS: heparin, porcine 5000 units/ml vial SQ SCH ×2 (07:30→20:13)
[2018-10-11] MEDS: lactobacillus rhamnosus 10,000 MMU CELLS/CAPSULE PO SCH ×2 (07:30→20:13)
[2018-10-11] MEDS: linezolid 600mg tablet PO SCH ×2 (07:33→20:13)
[2018-10-11] MEDS: NORepinephrine 8mg/ 250ml NS 250 ML IV SCH (08:20)
[2018-10-11] MEDS: budesonide 0.5mg/2ml UD nebule IH SCH ×2 (09:21→20:17)
--- NOTE | 2018-10-11 10:30 | NUR ---
Rounds today MD andersen informed of coarse lung sounds and ivf running wants fluid continued, he was informed of low urine output and the pts trouble with PO intake asked for NG he agrees to TF and placing corpak for consistent nutrition,TF ordered, informed MD about excessive pain and he increased the PO pain meds. Asked MD for CXR for coarse lung sounds. Addendum: 10/11/18 at 1803 by Esme Richards RN MD also informed about afib with RVR no change in orders
[2018-10-11] MEDS ORDERED: HYDROcodone/acetaminophen 10/325mg tab PO PRN (11:05)
[2018-10-11] MEDS: DOBUTamine-DoBUTrex 500mg/D5W 250 ML IV SCH (11:28)
--- NOTE | 2018-10-11 12:48 | NUR ---
Tube feeding consult: Pt continues with 0-25% PO intake on pureed food with nectar thick liquids not meeting nutrient needs, now five days with poor PO. Pt pending corpak placement. Per bedside RN, patient is also refusing medications, per physical assessment pt is confused, yells out frequently. Recommend to continue nectar thick Med Plus NSA 2.0 ONS TID, d/w dietary. Each serving will provide: 480 kcal, 17 g fat, 62 g CHO, 20 g protein, 304 mg K, and 420 mg Phos. Pt continues to be not appropriate for low tyramine education at this time as pt documented as A/O x 3 and confused. Will continue to follow. TF recs are below. Recommend: 1. When corpak placement is confirmed, recommend continuous tube feeding with vital high protein starting at 20 ml and advance as tolerated to goal rate of 90 ml/hr with vital high protein, will provide total volume of 2160 ml, 2160 cals, 189 gm protein, and 1806 ml water. 2. additional water flush per , sodium is 133 3. daily weights, prealbumin q Wednesday and 4. continue pureed diet with nectar thick liquids per ST recs, pt is needs a feeder 5. [place] thick Med Plus NSA 2.0 TID 6. provide high protein ed and low tyramine ed prior to d/c once appropriate Addendum: 10/11/18 at [address] Amended: Links added.
--- NOTE | 2018-10-11 14:30 | NUR ---
MD Bolanos at bedside picc line ordered will obtain consent
--- NOTE | 2018-10-11 14:40 | NUR ---
tried calling son next of kin no answer awaiting return phone call for PICC consent
[2018-10-11] MEDS: normal saline 1000ml 1,000 ML IV SCH (15:46)
--- NOTE | 2018-10-11 16:30 | NUR ---
wounds changed medicated with Dilaudid prior pt screaming the entire dressing change
--- NOTE | 2018-10-11 17:00 | NUR ---
PICC line nurse at bedside
--- NOTE | 2018-10-11 18:03 | NUR ---
Picc line still at bedside pt is screaming all pain meds have been administered and he will not calm down
--- NOTE | 2018-10-11 18:20 | NUR ---
Patient in room CICU 2011. I have received report and had the opportunity to ask questions and assume patient care.
--- NOTE | 2018-10-11 19:00 | NUR ---
PATIENT UNABLE TO CONSENT FOR SELF, FAMILY ATTEMPTED TO BE CONTACTED X4 WITH NO ANSWER AND NO WAY TO LEAVE A VOICEMAIL. PER DR. DAMIAN OK TO CONTINUE WITHOUT CONSENT OF FAMILY. TWO NURSES SIGNED VERIFICATION ON CONSENT. Addendum: 10/11/18 at 1913 by Tawanna Milton RN Amended: Links added.
--- NOTE | 2018-10-11 19:09 | NUR ---
PATIENT WITH NOTED BILATERAL UPPER EXTREMITY EDEMA, PACEMAKER TO LEFT SIDE, RIGHT ARM USED FOR BETTER VISUALIZATION. UNABLE TO CONFIRM IF PICC IS OK TO USE DUE TO NO RADIOLOGY AVAILABLE AT THIS TIME. CHEST XRAY SENT TO [facility]IRTUAL RADIOLOGY, AND AWAITING RESULTS. BEDSIDE RN RICK NOTIFIED AND STATES UNDERSTANDING OF NEED TO OBTAIN RADIOLOGY REPORT BEFORE USE. Addendum: 10/11/18 at 1913 by Tawanna Milton RN Amended: Links added.
--- NOTE | 2018-10-11 20:00 | NUR ---
pt continues to yell and cuss at nurses. pt can follow directions and pt admits that his behavior is bad and he shouldn't cuss at nurses however the behavior continues. when asked if the pt is in pain he states" no" but continues to yell ow incessantly despite pt needs being met. will continue to monitor
--- NOTE | 2018-10-11 20:10 | NUR ---
ELIANA Morrison reviewed recent XRays and gave order to use current PICC line for IV use and May use current Corpak for tube feedings and medications
[2018-10-11] MEDS: sennosides/docusate sodium tablet PO SCH (20:12)
--- NOTE | 2018-10-11 22:40 | NUR ---
pt continually yells "oww" as loud as he can. when asked if he is in pain he responds "no". when asked what is so wrong that he continues to yell he replies " I am allowed to" will continue to monitor.
[2018-10-12] VITALS (24 sets, daily range): BP systolic 94–152; BP diastolic 38–102
[2018-10-12] MEDS: ipratropium/albuterol 3ml nebule NEB SCH ×4 (02:37→19:50)
[2018-10-12 02:52] LABS: BASOPHILS % (AUTO) 0.2 % (0-1); EOSINOPHILS % (AUTO) 0.3 % (0-6); HEMATOCRIT 37.9 % (42.0-52.0); HEMOGLOBIN 12.5 g/dl (14.0-17.9); LYMPHOCYTES # (AUTO) 0.3 X10'3 (1.1-4.8); LYMPHOCYTES % (AUTO) 2.9 % (21-51); MEAN CORPUSCULAR HEMOGLOBIN 33.6 PG (27.0-31.0); MEAN CORPUSCULAR HGB CONC 32.9 g/dL (33.0-36.5); MEAN PLATELET VOLUME 8.1 FL (7.4-10.4); MONOCYTES # (AUTO) 0.6 X10'3 (0-0.9); MONOCYTES % (AUTO) 5.4 % (2-12); NEUTROPHILS # (AUTO) 10.4 X10'3 (1.8-7.7); NEUTROPHILS % (AUTO) 91.2 % (42-75); PLATELET COUNT 130 X10'3 (140-440); RED BLOOD COUNT 3.72 X10'6 (4.70-6.10); RED CELL DISTRIBUTION WIDTH 16.9 % (11.5-14.5); WHITE BLOOD COUNT 11.4 X10'3 (4.5-11.0)
[2018-10-12] MEDS: DOBUTamine-DoBUTrex 500mg/D5W 250 ML IV SCH ×2 (03:03→12:25)
[2018-10-12 03:09] LABS: ALANINE AMINOTRANSFERASE 24 U/L (12-78); ALBUMIN 1.6 G/DL (3.4-5.0); ALBUMIN/GLOBULIN RATIO 0.5 (1.1-1.5); ALKALINE PHOSPHATASE 71 IU/L (46-116); ANION GAP 11 (8-16); ASPARTATE AMINO TRANSFERASE 18 U/L (10-37); BILIRUBIN,TOTAL 0.7 MG/DL (0.1-1.0); BLOOD UREA NITROGEN 65 MG/DL (7-18); BUN/CREATININE RATIO 25.5 (5.4-32.0); CALCIUM 7.9 MG/DL (8.5-10.1); CHLORIDE 104 MMOL/L (99-107); CREATININE 2.55 MG/DL (0.60-1.10); GLUCOSE 106 MG/DL (70-104); MAGNESIUM 1.9 MG/DL (1.5-2.4); PHOSPHORUS 3.6 MG/DL (2.3-4.5); POTASSIUM 5.6 MMOL/L (3.5-5.1); SODIUM 135 MMOL/L (135-145); TOTAL CARBON DIOXIDE 20.1 MMOL/L (24-32); TOTAL PROTEIN 5.1 G/DL (6.4-8.2); eGFR 25 ML/MIN
--- NOTE | 2018-10-12 04:59 | NUR ---
pt continues to shout and cuss at staff. pt continually educated that behavior is unacceptable. pt states "oh well I didn't know." pt has been educated multiple time on proper treatment of staff but continues to cuss at and attempt to grab/hit staff. will continue to monitor.
--- NOTE | 2018-10-12 06:30 | NUR ---
Patient in room CICU 2011. I have received report from Tamara Martinez RN and had the opportunity to ask questions and assume patient care.
[2018-10-12] MEDS: potassium Cl 20 mEq SR tablet PO SCH (06:39)
[2018-10-12] MEDS ORDERED: acetaminophen 325mg tablet CORPAK PRN ×2 (06:49→06:50)
[2018-10-12] MEDS ORDERED: amiodarone 200mg tablet CORPAK SCH (06:50)
[2018-10-12] MEDS: cefepime 1GM/NS ADD-VANTAGE 100 ML IV SCH ×2 (07:53→22:03)
[2018-10-12] MEDS: amiodarone 200mg tablet CORPAK SCH (07:53)
[2018-10-12] MEDS: loratadine 10mg tablet CORPAK SCH (07:53)
[2018-10-12] MEDS: linezolid 600mg tablet PO SCH ×2 (07:53→22:04)
[2018-10-12] MEDS: levoTHYROXINE 175mcg tablet CORPAK SCH (07:53)
[2018-10-12] MEDS: aspirin 81mg tab.chew CORPAK SCH (07:53)
[2018-10-12] MEDS: atorvastatin 20mg tablet CORPAK SCH (07:54)
[2018-10-12] MEDS: lactobacillus rhamnosus 10,000 MMU CELLS/CAPSULE PO SCH ×2 (07:54→22:04)
[2018-10-12] MEDS: docusate sodium 100mg/10ml UD cup CORPAK SCH ×2 (07:54→22:03)
[2018-10-12] MEDS: heparin, porcine 5000 units/ml vial SQ SCH ×2 (07:54→20:00)
[2018-10-12] MEDS: tamsulosin 0.4mg capsule PO SCH (08:00)
[2018-10-12] MEDS ORDERED: levoTHYROXINE 175mcg tablet PO SCH (08:00)
[2018-10-12] MEDS: budesonide 0.5mg/2ml UD nebule IH SCH ×2 (08:46→19:50)
[2018-10-12] MEDS: HYDROmorphone 1 mg/ml syringe IV PRN ×3 (09:03→18:49)
[2018-10-12] MEDS: HYDROcodone/acetaminophen 10/325mg tab PO PRN ×3 (09:05→18:50)
--- NOTE | 2018-10-12 09:30 | NUR ---
Tamara and Bridget from Wound Care changed dressings to bilateral lower extremities. Wounds are draining excessive serous fluid. Right leg, lateral aspect is sloughing and has purple discoloration.
[2018-10-12] MEDS: furosemide 10 MG/1 ML 10ml inj IV SCH ×2 (09:41→22:03)
--- NOTE | 2018-10-12 10:15 | NUR ---
Please see 'critical care round' intervention for updates. Informed him that flomax was held due to being unable to be crushed. Synthroid is being given PO, and patient is on continuous tube feeding, which decreases effectiveness. Dr. Wei does not wish to have the patient on stress ulcer prophylaxis. He is also aware of LBM being 7/2. Informed him of patient's current cathartics he is receiving. He will order lactulose, dulcolax, and relistor.
--- NOTE | 2018-10-12 13:28 | NUR ---
WOUND INFECTION EDUCATION PROVIDED BY WOUND CARE 1. Patient instructed to call their primary doctor, or go the ED immediately if any of the following symptoms occur: * Increased pain in wound * Increase in drainage from the wound * Redness in the skin surrounding the wound * Warmth in the skin surrounding the wound * Bleeding from the wound * Temperature of 101 or greater 2. If any of these occur while in the hospital tell a nurse immediately. Addendum: 10/12/18 at 1329 by Tamara Rodas RN Amended: Links added.
[2018-10-12] MEDS: NORepinephrine 8mg/ 250ml NS 250 ML IV SCH (15:50)
[2018-10-12] MEDS ORDERED: bisacodyl 10mg suppository rectal RC PRN (16:20)
[2018-10-12] MEDS ORDERED: lactulose 20gm/30ml cup PO PRN (16:20)
[2018-10-12] MEDS: methylnaltrexone br 12mg/0.6ml inj***SubQ only SQ SCH (16:30)
[2018-10-12] MEDS: normal saline 1000ml 1,000 ML IV SCH (16:46)
--- NOTE | 2018-10-12 18:21 | NUR ---
Problems reprioritized. Patient report given, questions answered & plan of care reviewed with Nelly BASURTO RN..
[2018-10-12] MEDS: sennosides/docusate sodium tablet CORPAK SCH (22:04)
[2018-10-13] VITALS (24 sets, daily range): BP systolic 85–120; BP diastolic 39–71
[2018-10-13] MEDS: HYDROmorphone 1 mg/ml syringe IV PRN ×5 (02:06→20:40)
[2018-10-13] MEDS: HYDROcodone/acetaminophen 10/325mg tab PO PRN ×3 (02:06→20:39)
[2018-10-13 02:29] LABS: BASOPHILS % (AUTO) 0.2 % (0-1); EOSINOPHILS # (AUTO) 0.1 X10'3 (0-0.9); EOSINOPHILS % (AUTO) 0.6 % (0-6); HEMATOCRIT 34.6 % (42.0-52.0); HEMOGLOBIN 11.5 g/dl (14.0-17.9); LYMPHOCYTES # (AUTO) 0.3 X10'3 (1.1-4.8); LYMPHOCYTES % (AUTO) 2.8 % (21-51); MEAN CORPUSCULAR HEMOGLOBIN 33.5 PG (27.0-31.0); MEAN CORPUSCULAR HGB CONC 33.3 g/dL (33.0-36.5); MEAN CORPUSCULAR VOLUME 100.6 FL (78-98); MEAN PLATELET VOLUME 8.3 FL (7.4-10.4); MONOCYTES # (AUTO) 0.5 X10'3 (0-0.9); MONOCYTES % (AUTO) 3.8 % (2-12); NEUTROPHILS # (AUTO) 11.2 X10'3 (1.8-7.7); NEUTROPHILS % (AUTO) 92.6 % (42-75); PLATELET COUNT 123 X10'3 (140-440); RED BLOOD COUNT 3.44 X10'6 (4.70-6.10); RED CELL DISTRIBUTION WIDTH 16.6 % (11.5-14.5)
[2018-10-13 02:50] LABS: ALBUMIN 1.6 G/DL (3.4-5.0); ANION GAP 8 (8-16); BILIRUBIN,TOTAL 0.7 MG/DL (0.1-1.0); BLOOD UREA NITROGEN 76 MG/DL (7-18); CHLORIDE 107 MMOL/L (99-107); CREATININE 2.71 MG/DL (0.60-1.10); GLUCOSE 97 MG/DL (70-104); MAGNESIUM 1.9 MG/DL (1.5-2.4); PHOSPHORUS 3.2 MG/DL (2.3-4.5); POTASSIUM 5.5 MMOL/L (3.5-5.1); SODIUM 134 MMOL/L (135-145); TOTAL CARBON DIOXIDE 19.4 MMOL/L (24-32); TOTAL PROTEIN 4.9 G/DL (6.4-8.2); eGFR 23 ML/MIN
[2018-10-13 02:51] LABS: ALANINE AMINOTRANSFERASE 27 U/L (12-78); ALBUMIN/GLOBULIN RATIO 0.5 (1.1-1.5); ALKALINE PHOSPHATASE 64 IU/L (46-116); ASPARTATE AMINO TRANSFERASE 19 U/L (10-37)
[2018-10-13] MEDS: ipratropium/albuterol 3ml nebule NEB SCH ×4 (03:14→20:08)
[2018-10-13] MEDS: DOBUTamine-DoBUTrex 500mg/D5W 250 ML IV SCH ×2 (06:17→13:49)
--- NOTE | 2018-10-13 06:30 | NUR ---
Patient in room [facility] 2011. I have received report from [facility] and had the opportunity to ask questions and assume patient care. Patient is on 5 mcg of dobutamine and VSS, LEVO has been off since yesterday per shift report. Patient is yelling out constantly.
[2018-10-13] MEDS: potassium Cl 20 mEq SR tablet PO SCH (08:00)
[2018-10-13] MEDS: cefepime 1GM/NS ADD-VANTAGE 100 ML IV SCH ×2 (08:27→20:38)
[2018-10-13] MEDS: furosemide 10 MG/1 ML 10ml inj IV SCH ×3 (08:27→20:39)
[2018-10-13] MEDS: atorvastatin 20mg tablet CORPAK SCH (08:27)
[2018-10-13] MEDS: docusate sodium 100mg/10ml UD cup CORPAK SCH ×2 (08:27→20:40)
[2018-10-13] MEDS: lactobacillus rhamnosus 10,000 MMU CELLS/CAPSULE PO SCH ×2 (08:28→20:40)
[2018-10-13] MEDS: aspirin 81mg tab.chew CORPAK SCH (08:28)
[2018-10-13] MEDS: heparin, porcine 5000 units/ml vial SQ SCH ×2 (08:28→20:00)
[2018-10-13] MEDS: tamsulosin 0.4mg capsule PO SCH (08:28)
[2018-10-13] MEDS: loratadine 10mg tablet CORPAK SCH (08:28)
[2018-10-13] MEDS: levoTHYROXINE 175mcg tablet CORPAK SCH (08:28)
[2018-10-13] MEDS: amiodarone 200mg tablet CORPAK SCH (08:28)
[2018-10-13] MEDS: linezolid 600mg tablet PO SCH ×2 (08:29→20:39)
[2018-10-13] MEDS: budesonide 0.5mg/2ml UD nebule IH SCH ×2 (09:01→20:08)
--- NOTE | 2018-10-13 10:30 | NUR ---
Dr. Wei ordered an NG tube for this patient vs the corpack which continues to clog with med administration
--- NOTE | 2018-10-13 10:55 | NUR ---
Problems reprioritized. Patient report given, questions answered & plan of care reviewed with Jc BOTELLO.
--- NOTE | 2018-10-13 11:13 | NUR ---
WOUND INFECTION EDUCATION PROVIDED BY WOUND CARE 1. Patient instructed to call their primary doctor, or go the ED immediately if any of the following symptoms occur: * Increased pain in wound * Increase in drainage from the wound * Redness in the skin surrounding the wound * Warmth in the skin surrounding the wound * Bleeding from the wound * Temperature of 101 or greater 2. If any of these occur while in the hospital tell a nurse immediately. Addendum: 10/13/18 at 1113 by Sammy Ambriz RN Amended: Links added.
--- NOTE | 2018-10-13 12:00 | NUR ---
Reassessment: Tube feeding at goal, low GRV, still eating 0-25% pureed, nectar thick liquids. Corpak is clogged per RNMD mosquera replacing with [place] sump to provide larger diameter for medication administration. LBM 10/04, patient is receiving routine bowel care with colace and senna last given 10/12, also receiving relistor. pt is confused, yells out frequently. Pt continues to be not appropriate for low tyramine education at this time as pt documented as A/O x 3 and confused. Will continue to follow. Recommend: 1. Continue continuous tube feeding at goal rate of 90 ml/hr with vital high protein, will provide total volume of 2160 ml, 2160 cals, 189 gm protein, and 1806 ml water. 2. additional water flush per , sodium is 134 3. daily weights, prealbumin q Wednesday and 4. continue pureed diet with nectar thick liquids per [facility], pt is needs a feeder 5. [place] thick Med Plus NSA 2.0 TID 6. provide high protein ed and low tyramine ed prior to d/c once appropriate 7. continue routine bowel care Addendum: 10/13/18 at [address] Amended: Links added.
[2018-10-13] MEDS: ESOMEPRAZOLE 40 MG VIAL IV SCH (14:02)
[2018-10-13] MEDS: sennosides/docusate sodium tablet CORPAK SCH (20:39)
[2018-10-14] VITALS (23 sets, daily range): BP systolic 82–124; BP diastolic 44–69
[2018-10-14] MEDS: ipratropium/albuterol 3ml nebule NEB SCH ×4 (02:50→19:42)
[2018-10-14] MEDS: furosemide 10 MG/1 ML 10ml inj IV SCH ×5 (02:52→20:00)
[2018-10-14 03:09] LABS: BASOPHILS # (AUTO) 0.1 X10'3 (0-0.2); BASOPHILS % (AUTO) 0.4 % (0-1); EOSINOPHILS # (AUTO) 0.1 X10'3 (0-0.9); HEMATOCRIT 33.7 % (42.0-52.0); HEMOGLOBIN 11.1 g/dl (14.0-17.9); LYMPHOCYTES # (AUTO) 0.3 X10'3 (1.1-4.8); LYMPHOCYTES % (AUTO) 2.5 % (21-51); MEAN CORPUSCULAR HEMOGLOBIN 33.9 PG (27.0-31.0); MEAN CORPUSCULAR HGB CONC 33.1 g/dL (33.0-36.5); MEAN CORPUSCULAR VOLUME 102.2 FL (78-98); MEAN PLATELET VOLUME 8.3 FL (7.4-10.4); MONOCYTES # (AUTO) 0.5 X10'3 (0-0.9); MONOCYTES % (AUTO) 3.4 % (2-12); NEUTROPHILS # (AUTO) 12.6 X10'3 (1.8-7.7); NEUTROPHILS % (AUTO) 92.7 % (42-75); PLATELET COUNT 115 X10'3 (140-440); RED BLOOD COUNT 3.29 X10'6 (4.70-6.10); RED CELL DISTRIBUTION WIDTH 16.7 % (11.5-14.5); WHITE BLOOD COUNT 13.6 X10'3 (4.5-11.0)
[2018-10-14 03:32] LABS: ALANINE AMINOTRANSFERASE 23 U/L (12-78); ALBUMIN 1.6 G/DL (3.4-5.0); ALBUMIN/GLOBULIN RATIO 0.5 (1.1-1.5); ALKALINE PHOSPHATASE 64 IU/L (46-116); ANION GAP 7 (8-16); ASPARTATE AMINO TRANSFERASE 23 U/L (10-37); BILIRUBIN,TOTAL 0.6 MG/DL (0.1-1.0); BLOOD UREA NITROGEN 90 MG/DL (7-18); BUN/CREATININE RATIO 29.6 (5.4-32.0); CALCIUM 8.1 MG/DL (8.5-10.1); CHLORIDE 108 MMOL/L (99-107); CREATININE 3.04 MG/DL (0.60-1.10); GLUCOSE 111 MG/DL (70-104); MAGNESIUM 1.9 MG/DL (1.5-2.4); PHOSPHORUS 3.2 MG/DL (2.3-4.5); POTASSIUM 5.6 MMOL/L (3.5-5.1); SODIUM 135 MMOL/L (135-145); TOTAL CARBON DIOXIDE 19.7 MMOL/L (24-32); eGFR 20 ML/MIN
[2018-10-14] MEDS: ESOMEPRAZOLE 40 MG VIAL IV SCH (08:00)
[2018-10-14] MEDS: levoTHYROXINE 175mcg tablet CORPAK SCH (08:00)
[2018-10-14] MEDS: atorvastatin 20mg tablet CORPAK SCH (08:00)
[2018-10-14] MEDS ORDERED: terazosin 5mg capsule PO SCH (08:00)
[2018-10-14] MEDS: potassium Cl 20 mEq SR tablet PO SCH (08:00)
[2018-10-14] MEDS: docusate sodium 100mg/10ml UD cup CORPAK SCH ×2 (08:00→20:41)
[2018-10-14] MEDS: amiodarone 200mg tablet CORPAK SCH (08:01)
[2018-10-14] MEDS: lactobacillus rhamnosus 10,000 MMU CELLS/CAPSULE PO SCH ×2 (08:01→20:41)
[2018-10-14] MEDS: linezolid 600mg tablet PO SCH ×2 (08:01→20:41)
[2018-10-14] MEDS: aspirin 81mg tab.chew CORPAK SCH (08:01)
[2018-10-14] MEDS: methylnaltrexone br 12mg/0.6ml inj***SubQ only SQ SCH (08:01)
[2018-10-14] MEDS: loratadine 10mg tablet CORPAK SCH (08:01)
[2018-10-14] MEDS: cefepime 1GM/NS ADD-VANTAGE 100 ML IV SCH ×2 (08:02→20:44)
[2018-10-14] MEDS: heparin, porcine 5000 units/ml vial SQ SCH ×2 (08:02→20:00)
[2018-10-14] MEDS: budesonide 0.5mg/2ml UD nebule IH SCH ×2 (08:34→19:42)
[2018-10-14] MEDS: HYDROmorphone 1 mg/ml syringe IV PRN ×3 (09:10→19:05)
[2018-10-14] MEDS: DOBUTamine-DoBUTrex 500mg/D5W 250 ML IV SCH ×2 (09:31→19:07)
[2018-10-14] MEDS: normal saline 1000ml 1,000 ML IV SCH (11:45)
--- NOTE | 2018-10-14 12:38 | NUR ---
PRESSURE ULCER EDUCATION: DEFINITION: A pressure ulcer is an area of skin that breaks down when you stay in one position too long. The constant pressure against the skin reduces the blood flow to that area and the affected tissue dies. CAUSES: "Being bedridden or in a wheelchair "Fragile skin "Having a chronic condition, such as diabetes or vascular disease "Inability to move certain parts of your body without assistance "Older age "Incontinence of urine or stool SYMPTOMS: "A reddened area that DOES NOT turn white when pressed on - this can be the beginning of a pressure ulcer "A blister, deep sore or a crater - these can be advanced pressure ulcers FIRST AID: "Relieve the pressure on this area "Keep the area clean and dry "Call your primary doctor if you see any of the above symptoms "DO NOT massage the area "DO NOT use a donut shaped or ring shaped pillow- these actually interfere with the blood flow and cause complications PREVENTION: "Check for pressure ulcers everyday "Change position at least every two hours to relieve pressure "Use items that help relieve pressure- pillows, sheepskin, foam padding, and powders. "Keep skin clean and dry "Eat healthy well balanced meals "Exercise daily IF YOU SEE ANY OF THESE SYMPTOMS WHILE IN THE HOSPITAL - TELL YOUR NURSE IMMEDIATELY. IF YOU SEE ANY OF THESE SYMPTOMS WHILE AT HOME OR HAVE ANY QUESTIONS OR CONCERNS ABOUT PRESSURE ULCERS - CALL YOUR PRIMARY DOCTOR IMMEDIATELY. WOUND INFECTION EDUCATION PROVIDED BY WOUND CARE 1. Patient instructed to call their primary doctor, or go the ED immediately if any of the following symptoms occur: * Increased pain in wound * Increase in drainage from the wound * Redness in the skin surrounding the wound * Warmth in the skin surrounding the wound * Bleeding from the wound * Temperature of 101 or greater 2. If any of these occur while in the hospital tell a nurse immediately. Addendum: 10/14/18 at 1238 by Tamara Rodas RN Amended: Links added.
[2018-10-14] MEDS: NORepinephrine 8mg/ 250ml NS 250 ML IV SCH (14:41)
[2018-10-14] MEDS: HYDROcodone/acetaminophen 10/325mg tab PO PRN (19:06)
[2018-10-14] MEDS: sennosides/docusate sodium tablet CORPAK SCH (20:41)
[2018-10-15] VITALS (24 sets, daily range): BP systolic 78–119; BP diastolic 30–66
[2018-10-15] MEDS: furosemide 10 MG/1 ML 10ml inj IV SCH ×4 (02:00→21:00)
[2018-10-15] MEDS: ipratropium/albuterol 3ml nebule NEB SCH ×4 (02:20→20:13)
[2018-10-15 03:57] LABS: BASOPHILS # (AUTO) 0.1 X10'3 (0-0.2); BASOPHILS % (AUTO) 0.5 % (0-1); EOSINOPHILS # (AUTO) 0.2 X10'3 (0-0.9); EOSINOPHILS % (AUTO) 1.2 % (0-6); HEMATOCRIT 32.1 % (42.0-52.0); HEMOGLOBIN 10.6 g/dl (14.0-17.9); LYMPHOCYTES # (AUTO) 0.4 X10'3 (1.1-4.8); LYMPHOCYTES % (AUTO) 2.8 % (21-51); MEAN CORPUSCULAR HEMOGLOBIN 33.7 PG (27.0-31.0); MEAN CORPUSCULAR HGB CONC 32.9 g/dL (33.0-36.5); MEAN CORPUSCULAR VOLUME 102.4 FL (78-98); MEAN PLATELET VOLUME 8.6 FL (7.4-10.4); MONOCYTES # (AUTO) 0.5 X10'3 (0-0.9); MONOCYTES % (AUTO) 3.5 % (2-12); NEUTROPHILS # (AUTO) 13.2 X10'3 (1.8-7.7); PLATELET COUNT 112 X10'3 (140-440); RED BLOOD COUNT 3.14 X10'6 (4.70-6.10); RED CELL DISTRIBUTION WIDTH 17.3 % (11.5-14.5); WHITE BLOOD COUNT 14.3 X10'3 (4.5-11.0)
[2018-10-15 04:18] LABS: ALANINE AMINOTRANSFERASE 28 U/L (12-78); ALBUMIN 1.5 G/DL (3.4-5.0); ALBUMIN/GLOBULIN RATIO 0.4 (1.1-1.5); ALKALINE PHOSPHATASE 66 IU/L (46-116); ANION GAP 12 (8-16); ASPARTATE AMINO TRANSFERASE 28 U/L (10-37); BILIRUBIN,TOTAL 0.8 MG/DL (0.1-1.0); BLOOD UREA NITROGEN 103 MG/DL (7-18); BUN/CREATININE RATIO 31.5 (5.4-32.0); CALCIUM 7.6 MG/DL (8.5-10.1); CHLORIDE 105 MMOL/L (99-107); CREATININE 3.27 MG/DL (0.60-1.10); GLUCOSE 145 MG/DL (70-104); MAGNESIUM 1.7 MG/DL (1.5-2.4); PHOSPHORUS 2.8 MG/DL (2.3-4.5); POTASSIUM 5.4 MMOL/L (3.5-5.1); SODIUM 135 MMOL/L (135-145); TOTAL CARBON DIOXIDE 17.7 MMOL/L (24-32); eGFR 19 ML/MIN
--- NOTE | 2018-10-15 05:15 | NUR ---
RN Note -MD Communication Called April Iron for restraint order. Pt trying to pull out NG tube.
[2018-10-15] MEDS: budesonide 0.5mg/2ml UD nebule IH SCH ×2 (07:47→20:13)
[2018-10-15] MEDS: Terazosin 1mg capsule PO SCH (08:00)
[2018-10-15] MEDS: potassium Cl 20 mEq SR tablet PO SCH (08:00)
[2018-10-15] MEDS: docusate sodium 100mg/10ml UD cup CORPAK SCH ×2 (08:00→20:00)
[2018-10-15] MEDS: cefepime 1GM/NS ADD-VANTAGE 100 ML IV SCH ×2 (08:18→20:26)
[2018-10-15] MEDS: levoTHYROXINE 175mcg tablet CORPAK SCH (08:19)
[2018-10-15] MEDS: ESOMEPRAZOLE 40 MG VIAL IV SCH (08:19)
[2018-10-15] MEDS: aspirin 81mg tab.chew CORPAK SCH (08:19)
[2018-10-15] MEDS: atorvastatin 20mg tablet CORPAK SCH (08:19)
[2018-10-15] MEDS: amiodarone 200mg tablet CORPAK SCH (08:20)
[2018-10-15] MEDS: lactobacillus rhamnosus 10,000 MMU CELLS/CAPSULE PO SCH ×2 (08:20→20:52)
[2018-10-15] MEDS: loratadine 10mg tablet CORPAK SCH (08:20)
[2018-10-15] MEDS: linezolid 600mg tablet PO SCH ×2 (08:20→20:52)
[2018-10-15] MEDS: heparin, porcine 5000 units/ml vial SQ SCH ×2 (08:21→20:58)
[2018-10-15] MEDS ORDERED: NORepinephrine 8mg/ 250ml NS 250 ML IV SCH (10:15)
[2018-10-15] MEDS ORDERED: QUEtiapine 25mg tablet PO ONE (10:25)
[2018-10-15] MEDS ORDERED: hydrocortisone sod succ/PF 100mg/2ml inj. IV ONE (10:40)
[2018-10-15] MEDS: NORepinephrine 8mg/ 250ml NS 250 ML IV SCH (11:07)
[2018-10-15] MEDS: morphine 2 MG/ML inj. syringe IV PRN ×3 (11:28→16:26)
[2018-10-15] MEDS: DOBUTamine-DoBUTrex 500mg/D5W 250 ML IV SCH ×2 (12:45→18:19)
[2018-10-15] MEDS: hydrocortisone sod succ/PF 100mg/2ml inj. IV SCH ×2 (14:18→20:57)
[2018-10-15 16:18] LABS: CLARITY,URINE CLOUDY (Clear); COLOR,URINE RED (Yellow); PH,URINE 6.5 (4.8-8.0)
[2018-10-15 16:26] LABS: UA COLLECTION TYPE NON-SPECIFIED
[2018-10-15 16:29] LABS: BACTERIA,URINE FEW /HPF (Neg); RBC,URINE TNTC /HPF (0-2); SQUAMOUS EPITHELIAL CELL,UR NONE SEEN /LPF (FEW); WBC,URINE 30-50 /HPF (0-4)
[2018-10-15 16:50] LABS: UA EOSINOPHILS NO EOS /HPF
--- NOTE | 2018-10-15 18:41 | NUR ---
pt report given to Asif BOTELLO; all questions answered.
[2018-10-15] MEDS: HYDROmorphone 1 mg/ml syringe IV PRN ×2 (18:48→23:42)
[2018-10-15] MEDS: QUEtiapine 25mg tablet PO SCH (20:52)
[2018-10-15] MEDS: sennosides/docusate sodium tablet CORPAK SCH (21:00)
--- NOTE | 2018-10-15 23:12 | NUR ---
Informed Parvez Quinn PHD INTERN of hematuria and some coffee ground color when checking tube feed residuals.
[2018-10-16] VITALS (24 sets, daily range): BP systolic 83–131; BP diastolic 41–72
[2018-10-16] MEDS: DOBUTamine-DoBUTrex 500mg/D5W 250 ML IV SCH ×4 (00:49→21:36)
[2018-10-16] MEDS: hydrocortisone sod succ/PF 100mg/2ml inj. IV SCH ×4 (02:15→20:57)
[2018-10-16] MEDS: furosemide 10 MG/1 ML 10ml inj IV SCH ×4 (02:16→20:57)
[2018-10-16 02:49] LABS: BASOPHILS % (AUTO) 0.1 % (0-1); EOSINOPHILS % (AUTO) 0 % (0-6); HEMATOCRIT 30.5 % (42.0-52.0); HEMOGLOBIN 10.2 g/dl (14.0-17.9); LYMPHOCYTES # (AUTO) 0.2 X10'3 (1.1-4.8); LYMPHOCYTES % (AUTO) 1.6 % (21-51); MEAN CORPUSCULAR HEMOGLOBIN 34.1 PG (27.0-31.0); MEAN CORPUSCULAR HGB CONC 33.4 g/dL (33.0-36.5); MEAN CORPUSCULAR VOLUME 102.1 FL (78-98); MEAN PLATELET VOLUME 8.9 FL (7.4-10.4); MONOCYTES # (AUTO) 0.1 X10'3 (0-0.9); NEUTROPHILS # (AUTO) 12.7 X10'3 (1.8-7.7); NEUTROPHILS % (AUTO) 97.3 % (42-75); PLATELET COUNT 107 X10'3 (140-440); RED BLOOD COUNT 2.99 X10'6 (4.70-6.10); RED CELL DISTRIBUTION WIDTH 17.8 % (11.5-14.5); WHITE BLOOD COUNT 13.1 X10'3 (4.5-11.0)
[2018-10-16 03:00] LABS: PARTIAL THROMBOPLASTIN TIME 35 SECONDS (22-32)
[2018-10-16 03:01] LABS: ALANINE AMINOTRANSFERASE 32 U/L (12-78); ALBUMIN 1.7 G/DL (3.4-5.0); ALBUMIN/GLOBULIN RATIO 0.5 (1.1-1.5); ALKALINE PHOSPHATASE 76 IU/L (46-116); ANION GAP 14 (8-16); ASPARTATE AMINO TRANSFERASE 42 U/L (10-37); BILIRUBIN,TOTAL 0.5 MG/DL (0.1-1.0); BLOOD UREA NITROGEN 132 MG/DL (7-18); BUN/CREATININE RATIO 38.3 (5.4-32.0); CALCIUM 8.1 MG/DL (8.5-10.1); CHLORIDE 104 MMOL/L (99-107); CREATININE 3.45 MG/DL (0.60-1.10); GLUCOSE 153 MG/DL (70-104); MAGNESIUM 1.9 MG/DL (1.5-2.4); PHOSPHORUS 3.2 MG/DL (2.3-4.5); POTASSIUM 5.3 MMOL/L (3.5-5.1); SODIUM 136 MMOL/L (135-145); TOTAL CARBON DIOXIDE 18.3 MMOL/L (24-32); TOTAL PROTEIN 5.2 G/DL (6.4-8.2); eGFR 17 ML/MIN
[2018-10-16] MEDS: ipratropium/albuterol 3ml nebule NEB SCH ×4 (03:11→21:23)
[2018-10-16] MEDS: NORepinephrine 8mg/ 250ml NS 250 ML IV SCH (03:42)
[2018-10-16] MEDS: HYDROmorphone 1 mg/ml syringe IV PRN ×2 (03:43→11:37)
--- NOTE | 2018-10-16 06:34 | NUR ---
Patient in room [facility] 2011. I have received report from Asif BOTELLO and had the opportunity to ask questions and assume patient care. Addendum: 10/16/18 at 0634 by Liane Argueta RN Amended: Links added.
--- NOTE | 2018-10-16 07:09 | NUR ---
Done by jeancarlos RN Addendum: 10/16/18 at 0710 by Liane Argueta RN Amended: Links added.
[2018-10-16] MEDS: atorvastatin 20mg tablet CORPAK SCH (07:22)
[2018-10-16] MEDS: lactobacillus rhamnosus 10,000 MMU CELLS/CAPSULE PO SCH ×2 (07:22→20:57)
[2018-10-16] MEDS: levoTHYROXINE 175mcg tablet CORPAK SCH (07:22)
[2018-10-16] MEDS: Terazosin 1mg capsule PO SCH (07:23)
[2018-10-16] MEDS: amiodarone 200mg tablet CORPAK SCH (07:23)
[2018-10-16] MEDS: linezolid 600mg tablet PO SCH ×2 (07:23→20:58)
[2018-10-16] MEDS: loratadine 10mg tablet CORPAK SCH (07:23)
[2018-10-16] MEDS: ESOMEPRAZOLE 40 MG VIAL IV SCH (07:23)
[2018-10-16] MEDS: cefepime 1GM/NS ADD-VANTAGE 100 ML IV SCH ×2 (07:24→21:02)
[2018-10-16] MEDS: heparin, porcine 5000 units/ml vial SQ SCH ×2 (07:28→20:58)
[2018-10-16] MEDS: aspirin 81mg tab.chew CORPAK SCH (07:30)
[2018-10-16] MEDS: budesonide 0.5mg/2ml UD nebule IH SCH ×2 (07:31→21:23)
[2018-10-16] MEDS: docusate sodium 100mg/10ml UD cup CORPAK SCH ×2 (07:46→20:00)
[2018-10-16] MEDS: potassium Cl 20 mEq SR tablet PO SCH (07:47)
[2018-10-16] MEDS: methylnaltrexone br 12mg/0.6ml inj***SubQ only SQ SCH (07:47)
--- NOTE | 2018-10-16 08:26 | NUR ---
Pt. awake but moaning constantly. Will does follow commands. VSS on Levo and Dobutamine.
[2018-10-16] MEDS: morphine 2 MG/ML inj. syringe IV PRN (09:08)
--- NOTE | 2018-10-16 09:39 | NUR ---
reassessment: Pt tolerating OGTF at goal; now refuses PO meals. Atif 11 w/ R calf cellulitis; meeting healing needs w/ EN. Zyvox and high protein eds deferred at this time since AOx1. LB 10/15. Will continue to monitor for EN tolerance. Recommend: 1. Continue continuous tube feeding at goal rate of 90 ml/hr with vital high protein, will provide total volume of 2160 ml, 2160 cals, 189 gm protein, and 1806 ml water. 2. additional water flush per MD, sodium is 136 3. daily weights, prealbumin q Wednesday and 4. continue pureed diet with nectar thick liquids per [facility], pt is needs a feeder 5. [place] thick Med Plus NSA 2.0 TID; monitor for d/c needs if meeting needs via EN 6. provide high protein ed and low tyramine ed prior to d/c once appropriate 7. continue routine bowel care Addendum: 10/16/18 at [address] Amended: Links added.
--- NOTE | 2018-10-16 11:32 | NUR ---
Dr. Maurer here to see pt.
--- NOTE | 2018-10-16 11:41 | NUR ---
Stat urine urea ordered. Order received to cancel 24 hour urine study.
[2018-10-16] MEDS: normal saline 1000ml 1,000 ML IV SCH (11:45)
--- NOTE | 2018-10-16 12:16 | NUR ---
Pt. has multiple open areas on arms that are bleeding and weepy. RN constantly wrapping arms and elevating them on dri-marivel covered pillows.
--- NOTE | 2018-10-16 15:33 | NUR ---
Arm dressings redone as pt. is weeping constantly. PICC dressing not adherent to skin. PICC out 15cm. Xray obtained to check placement. Charge aware. Awaiting xray report. VSS.
--- NOTE | 2018-10-16 16:26 | NUR ---
Awaiting a call back from Dr. Maurer re. PICC placement.
--- NOTE | 2018-10-16 17:18 | NUR ---
Dr. Maurer called back. RN read radiology report to Dr. Maurer who stated the PICC is fine to use.
--- NOTE | 2018-10-16 17:41 | NUR ---
RT NT suctioned pt. once today with minimal results, however, the secretions were very thick in consistency.
--- NOTE | 2018-10-16 18:30 | NUR ---
Patient in room CICU 2011. I have received report from Liane BOTELLO and had the opportunity to ask questions and assume patient care. Patient in bed, restless, not following commands and moaning/groaning constantly. HR in low 100s paced and in atrial fibrillation. BP 125/59 on 6mcg/kg/min levophed and 10mcg/kg/min of dobutamine. Will continue to monitor patient.
[2018-10-16] MEDS: QUEtiapine 25mg tablet PO SCH (20:59)
[2018-10-16] MEDS: sennosides/docusate sodium tablet CORPAK SCH (21:00)
[2018-10-16] MEDS ORDERED: albumin (human) 25% 100 ML IV solution IV ONE (23:40)
--- NOTE | 2018-10-16 23:50 | NUR ---
April Cheyenne at bedside to assess patient. Patient not ventilating well, desaturating to 60% on 5LNC. Patient no longer responsive, MAP dropping below 60 and now on 30mcg/kg/min levophed. April attempted to contact patient's son, left voicemail on numbers listed in patient's MAR. Patient placed on BiPAP, patient now saturating at 100% on 60% FIO2. Awaiting ABG results. Awaiting son's call-back to discuss possible comfort care with April Cheyenne. Will continue to monitor patient.
[2018-10-17] VITALS (24 sets, daily range): BP systolic 82–127; BP diastolic 32–75
[2018-10-17 00:06] LABS: ABG BASE EXCESS -14.5 mmol/L (-2.0-3.0); ABG HCO3 16.8 mmol/L (22.0-26.0); ABG OXYGEN SATURATION 98.2 % (95-98); ABG PCO2 (T) 66.8 mmHg (35.0-48.0); ABG PH (T) 7.016 (7.350-7.450); ABG PO2 (T) 171.1 mmHg (83-108); ALLEN'S TEST Positive; FCOHb 0.4 % (0.5-1.5); FMetHb 0.2 % (0.3-1.12); FO2Hb 97.6 % (94-100); MINUTE VOLUME 10 L/min; PATIENT TEMPERATURE 36.5; RESPIRATORY RATE 20 b/min; RESPIRATORY RATE (OBSERVED) 20 b/min; TOTAL HEMOGLOBIN 11.3 G/dl (14.0-18.0)
[2018-10-17] MEDS: ipratropium/albuterol 3ml nebule NEB SCH ×4 (03:31→21:11)
[2018-10-17] MEDS: furosemide 10 MG/1 ML 10ml inj IV SCH ×2 (03:40→08:40)
[2018-10-17] MEDS: hydrocortisone sod succ/PF 100mg/2ml inj. IV SCH ×4 (03:40→23:27)
[2018-10-17 03:56] LABS: BASOPHILS % (AUTO) 0.1 % (0-1); EOSINOPHILS % (AUTO) 0 % (0-6); HEMATOCRIT 28.9 % (42.0-52.0); HEMOGLOBIN 9.3 g/dl (14.0-17.9); LYMPHOCYTES # (AUTO) 0.4 X10'3 (1.1-4.8); LYMPHOCYTES % (AUTO) 2.5 % (21-51); MEAN CORPUSCULAR HEMOGLOBIN 33.5 PG (27.0-31.0); MEAN CORPUSCULAR HGB CONC 32.3 g/dL (33.0-36.5); MEAN CORPUSCULAR VOLUME 103.9 FL (78-98); MEAN PLATELET VOLUME 9.6 FL (7.4-10.4); MONOCYTES # (AUTO) 0.3 X10'3 (0-0.9); MONOCYTES % (AUTO) 2.1 % (2-12); NEUTROPHILS % (AUTO) 95.3 % (42-75); PLATELET COUNT 100 X10'3 (140-440); RED BLOOD COUNT 2.79 X10'6 (4.70-6.10); RED CELL DISTRIBUTION WIDTH 17.5 % (11.5-14.5); WHITE BLOOD COUNT 15.8 X10'3 (4.5-11.0)
[2018-10-17 04:00] LABS: ALANINE AMINOTRANSFERASE 42 U/L (12-78); ALBUMIN 2.5 G/DL (3.4-5.0); ALBUMIN/GLOBULIN RATIO 0.8 (1.1-1.5); ALKALINE PHOSPHATASE 62 IU/L (46-116); ANION GAP 15 (8-16); ASPARTATE AMINO TRANSFERASE 35 U/L (10-37); BILIRUBIN,TOTAL 0.6 MG/DL (0.1-1.0); CALCIUM 7.8 MG/DL (8.5-10.1); CHLORIDE 103 MMOL/L (99-107); CREATININE 3.99 MG/DL (0.60-1.10); GLUCOSE 161 MG/DL (70-104); MAGNESIUM 1.9 MG/DL (1.5-2.4); PHOSPHORUS 4.8 MG/DL (2.3-4.5); POTASSIUM 5.8 MMOL/L (3.5-5.1); SODIUM 136 MMOL/L (135-145); TOTAL PROTEIN 5.8 G/DL (6.4-8.2); eGFR 15 ML/MIN
[2018-10-17 04:01] LABS: BLOOD UREA NITROGEN 160 MG/DL (7-18); BUN/CREATININE RATIO 40.1 (5.4-32.0)
[2018-10-17] MEDS: NORepinephrine 8mg/ 250ml NS 250 ML IV SCH (05:06)
[2018-10-17] MEDS: DOBUTamine-DoBUTrex 500mg/D5W 250 ML IV SCH ×2 (05:06→12:42)
--- NOTE | 2018-10-17 06:25 | NUR ---
Problems reprioritized. Patient report given, questions answered & plan of care reviewed with Elvia and Cresencio RNs.
[2018-10-17] MEDS: budesonide 0.5mg/2ml UD nebule IH SCH ×2 (07:16→21:10)
[2018-10-17] MEDS: potassium Cl 20 mEq SR tablet PO SCH (08:00)
[2018-10-17] MEDS: lactobacillus rhamnosus 10,000 MMU CELLS/CAPSULE PO SCH ×2 (08:35→20:47)
[2018-10-17] MEDS: amiodarone 200mg tablet CORPAK SCH (08:35)
[2018-10-17] MEDS: linezolid 600mg tablet PO SCH ×2 (08:35→20:47)
[2018-10-17] MEDS: atorvastatin 20mg tablet CORPAK SCH (08:35)
[2018-10-17] MEDS: levoTHYROXINE 175mcg tablet CORPAK SCH (08:35)
[2018-10-17] MEDS: loratadine 10mg tablet CORPAK SCH (08:35)
[2018-10-17] MEDS: docusate sodium 100mg/10ml UD cup CORPAK SCH ×2 (08:35→20:00)
[2018-10-17] MEDS: Terazosin 1mg capsule PO SCH (08:40)
[2018-10-17] MEDS: aspirin 81mg tab.chew CORPAK SCH (08:40)
[2018-10-17] MEDS: cefepime 1GM/NS ADD-VANTAGE 100 ML IV SCH (08:40)
[2018-10-17] MEDS: heparin, porcine 5000 units/ml vial SQ SCH ×2 (08:41→20:47)
[2018-10-17] MEDS: ESOMEPRAZOLE 40 MG VIAL IV SCH (08:42)
[2018-10-17 15:57] LABS: GASTRIC OCCULT BLOOD NEGATIVE (Neg)
--- NOTE | 2018-10-17 18:15 | NUR ---
Patient in room CICU 2011. I have received report from Elvia Granda and had the opportunity to ask questions and assume patient care. Patient resting in bed, on BiPAP. Moans/groans constantly, opens eyes to tactile stimulus and does not follow commands. Saturating at 98% on 40% FIO2 and breathing at 30 breaths/min. Will continue to monitor patient closely.
[2018-10-17 19:36] LABS: ABG BASE EXCESS -11.4 mmol/L (-2.0-3.0); ABG HCO3 13.7 mmol/L (22.0-26.0); ABG OXYGEN SATURATION 98.2 % (95-98); ABG PCO2 (T) 28.3 mmHg (35.0-48.0); ABG PH (T) 7.302 (7.350-7.450); ABG PO2 (T) 133.5 mmHg (83-108); FCOHb 0.3 % (0.5-1.5); FMetHb 0.1 % (0.3-1.12); FO2Hb 97.8 % (94-100); MINUTE VOLUME 32 L/min; RESPIRATORY RATE 16 b/min; RESPIRATORY RATE (OBSERVED) 32 b/min; TOTAL HEMOGLOBIN 9.6 G/dl (14.0-18.0)
[2018-10-17] MEDS: sennosides/docusate sodium tablet CORPAK SCH (21:00)
[2018-10-17] MEDS: morphine 2 MG/ML inj. syringe IV PRN (21:42)
[2018-10-17] MEDS: HYDROmorphone 1 mg/ml syringe IV PRN (23:28)
[2018-10-18] VITALS (9 sets, daily range): BP systolic 83–128; BP diastolic 38–66
[2018-10-18 02:41] LABS: BASOPHILS % (AUTO) 0.1 % (0-1); EOSINOPHILS % (AUTO) 0 % (0-6); HEMATOCRIT 25.9 % (42.0-52.0); HEMOGLOBIN 8.6 g/dl (14.0-17.9); LYMPHOCYTES # (AUTO) 0.2 X10'3 (1.1-4.8); LYMPHOCYTES % (AUTO) 1.8 % (21-51); MEAN CORPUSCULAR HEMOGLOBIN 34.2 PG (27.0-31.0); MEAN CORPUSCULAR HGB CONC 33.3 g/dL (33.0-36.5); MEAN CORPUSCULAR VOLUME 102.8 FL (78-98); MEAN PLATELET VOLUME 9.8 FL (7.4-10.4); MONOCYTES # (AUTO) 0.3 X10'3 (0-0.9); MONOCYTES % (AUTO) 2.5 % (2-12); NEUTROPHILS # (AUTO) 10.2 X10'3 (1.8-7.7); NEUTROPHILS % (AUTO) 95.6 % (42-75); RED BLOOD COUNT 2.52 X10'6 (4.70-6.10); RED CELL DISTRIBUTION WIDTH 17.5 % (11.5-14.5); WHITE BLOOD COUNT 10.7 X10'3 (4.5-11.0)
[2018-10-18] MEDS: NORepinephrine 8mg/ 250ml NS 250 ML IV SCH (02:46)
[2018-10-18] MEDS: DOBUTamine-DoBUTrex 500mg/D5W 250 ML IV SCH (02:57)
[2018-10-18] MEDS: ipratropium/albuterol 3ml nebule NEB SCH ×2 (02:58→07:46)
[2018-10-18 02:59] LABS: ALANINE AMINOTRANSFERASE 41 U/L (12-78); ALBUMIN 2.3 G/DL (3.4-5.0); ALBUMIN/GLOBULIN RATIO 0.8 (1.1-1.5); ALKALINE PHOSPHATASE 57 IU/L (46-116); ANION GAP 14 (8-16); ASPARTATE AMINO TRANSFERASE 37 U/L (10-37); BILIRUBIN,TOTAL 0.6 MG/DL (0.1-1.0); BLOOD UREA NITROGEN 179 MG/DL (7-18); CALCIUM 8.1 MG/DL (8.5-10.1); CHLORIDE 104 MMOL/L (99-107); CREATININE 4.47 MG/DL (0.60-1.10); GLUCOSE 124 MG/DL (70-104); PHOSPHORUS 5.4 MG/DL (2.3-4.5); POTASSIUM 5.8 MMOL/L (3.5-5.1); PREALBUMIN 20.5 MG/DL (19-36); SODIUM 135 MMOL/L (135-145); TOTAL CARBON DIOXIDE 17.4 MMOL/L (24-32); TOTAL PROTEIN 5.3 G/DL (6.4-8.2); eGFR 13 ML/MIN
[2018-10-18 03:20] LABS: PLATELET COUNT 88 X10'3 (140-440)
--- NOTE | 2018-10-18 04:06 | NUR ---
Patient continue to be restless in bed, moaning and groaning and does not follow commands nor speak. Patient saturating at 98% on 35% FiO2 on bipap, continuously breathing above 30 breaths/min. Dressings reinforced to bilateral lower extremities. Will continue to monitor patient.
--- NOTE | 2018-10-18 06:24 | NUR ---
Problems reprioritized. Patient report given, questions answered & plan of care reviewed with Jo BOTELLO.
[2018-10-18] MEDS: morphine 2 MG/ML inj. syringe IV PRN ×2 (06:44→08:22)
--- NOTE | 2018-10-18 06:58 | NUR ---
Rec report from ROSMERY Johnson. Pt assessed, contantly moving his arms and moaning; appears extremely uncomfortable with resp rate in 40's. Given a dose of morphine for sign of pain. Opens his eyes to voice and turns to make eye contact. Does not follow any other commands. Wounds on arms and legs weeping through dressings, will change as needed. VSS on Levophed and Dobutamine. Bipap at 35% with SaO2 100%. Per report, family meeting is to take place at 10 am this morning.
[2018-10-18] MEDS: methylnaltrexone br 12mg/0.6ml inj***SubQ only SQ SCH (07:34)
[2018-10-18] MEDS: heparin, porcine 5000 units/ml vial SQ SCH (07:34)
[2018-10-18] MEDS: docusate sodium 100mg/10ml UD cup CORPAK SCH (07:34)
[2018-10-18] MEDS: potassium Cl 20 mEq SR tablet PO SCH (07:34)
[2018-10-18] MEDS: budesonide 0.5mg/2ml UD nebule IH SCH (07:46)
[2018-10-18] MEDS: Terazosin 1mg capsule PO SCH (08:00)
--- NOTE | 2018-10-18 08:50 | NUR ---
Wound care in seeing patient, changing dressings. Pain medication given for dressing changes.
[2018-10-18] MEDS: loratadine 10mg tablet CORPAK SCH (09:03)
[2018-10-18] MEDS: hydrocortisone sod succ/PF 100mg/2ml inj. IV SCH (09:03)
[2018-10-18] MEDS: ESOMEPRAZOLE 40 MG VIAL IV SCH (09:03)
[2018-10-18] MEDS: levoTHYROXINE 175mcg tablet CORPAK SCH (09:03)
[2018-10-18] MEDS: aspirin 81mg tab.chew CORPAK SCH (09:03)
[2018-10-18] MEDS: atorvastatin 20mg tablet CORPAK SCH (09:03)
[2018-10-18] MEDS: lactobacillus rhamnosus 10,000 MMU CELLS/CAPSULE PO SCH (09:03)
[2018-10-18] MEDS: amiodarone 200mg tablet CORPAK SCH (09:04)
[2018-10-18] MEDS: linezolid 600mg tablet PO SCH (09:04)
[2018-10-18] MEDS ORDERED: morphine 4 MG/ML inj SYRINge IV PRN (10:55)
[2018-10-18] MEDS ORDERED: LORazepam 2 mg/ml vial IV PRN (10:55)
--- NOTE | 2018-10-18 11:32 | NUR ---
Family meeting held with son Abimael and his present as well as Dr Mathews and case management. Patient condition and prognosis discussed as well as comfort care pathway; son is in agreement of comfort care being initiated at this time and has POA. Ativan given for restlessness and anxiety, iv's stopped as well as bipap. Respiratory rate has decreased to 25-30 from 45, on 2 liters n/c. Patient appears more comfortable.
--- NOTE | 2018-10-18 12:15 | NUR ---
Pt vitals declining, appears comfortable. Attempted to contact son Abimael on both available numbers to update on condition and wasnt able to reach him. tried zeenat Fontaine as well.
--- NOTE | 2018-10-18 13:01 | NUR ---
RN IS TO DOCUMENT YES TO ALL APPLICABLE AREAS Pronouncement of 1. Time Physician Notified:Dr Lewis, graphite disk assembler 2. Date of :10/18/2018 3. Time of : 12:41 pm 4. DNR/Withdraw life support documented: yes 5. Monitor strip has been placed on chart:yes 6. Assessment process is of one-minute duration and includes following criteria: a) Patient is unresponsive to all stimuli: yes b) Pupils fixed and non-reactive: yes c) Auscultation of precordium reveals absence of heart tones:yes d) Auscultation of lungs reveals absence of breath sounds:yes e) Absence of blood pressure / all vital signs: yes f) QRS complexes are not present on monitor / EKG strip: yes g) Pacer spikes without capture: yes 4. Comments:
--- NOTE | 2018-10-18 14:01 | NUR ---
Pt now comfort care, tube feedings were discontinued. will follow per protocol. Addendum: 10/18/18 at [address] Amended: Links added.
--- NOTE | 2018-10-18 16:18 | NUR ---
Spoke with son Abimael again and got ok to send patient to [facility]. 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 Only belongings sent were articles of clothing. Pt picked up at 1610. [facility]or network notified at 1305.
== END 2018-10-18 16:19 | disposition expired | DRG 871 ==
LOC: ER 14:52 → CICU 2S 18:20 → EDBEDREQ 18:29 → CMPBEDREQ 22:09
PROVIDERS: ADMIT Internal Medicine Critical Care Medicine; ATTEND Internal Medicine Critical Care Medicine
PROC: 02HV33Z Insertion of Infusion Device into Superior Vena Cava, Percutaneous Approach (ICD-10-PCS; 2018-10-11)
PROC: 5A09357 Assistance with Respiratory Ventilation, Less than 24 Consecutive Hours, Continuous Positive Airway Pressure (ICD-10-PCS; 2018-10-16)
PROC: 5A09457 Assistance with Respiratory Ventilation, 24-96 Consecutive Hours, Continuous Positive Airway Pressure (ICD-10-PCS; principal; 2018-10-17)
DX: A41.9 Sepsis, unspecified organism (principal); R65.21 Severe sepsis with septic shock; J96.90 Respiratory failure, unspecified, unspecified whether with hypoxia or hypercapnia; N17.9 Acute kidney failure, unspecified; L97.909 Non-pressure chronic ulcer of unspecified part of unspecified lower leg with unspecified severity; L03.115 Cellulitis of right lower limb; L03.116 Cellulitis of left lower limb; I13.0 Hypertensive heart and chronic kidney disease with heart failure and stage 1 through stage 4 chronic kidney disease, or unspecified chronic kidney disease; I42.9 Cardiomyopathy, unspecified; I50.9 Heart failure, unspecified; I48.91 Unspecified atrial fibrillation; E03.9 Hypothyroidism, unspecified; E78.5 Hyperlipidemia, unspecified; F17.200 Nicotine dependence, unspecified, uncomplicated; I25.10 Atherosclerotic heart disease of native coronary artery without angina pectoris; E66.9 Obesity, unspecified; N18.3 Chronic kidney disease, stage 3 (moderate); I34.0 Nonrheumatic mitral (valve) insufficiency; J44.9 Chronic obstructive pulmonary disease, unspecified; N40.0 Benign prostatic hyperplasia without lower urinary tract symptoms; Z90.5 Acquired absence of kidney; Z95.1 Presence of aortocoronary bypass graft; Z99.81 Dependence on supplemental oxygen; Z91.048 Other nonmedicinal substance allergy status; Z79.82 Long term (current) use of aspirin; Z79.899 Other long term (current) drug therapy; Z68.37 Body mass index [BMI] 37.0-37.9, adult
CPT/HCPCS: 36415; 36569; 36600; 71045; 74018; 76775; 76937; 80053; 80202; 81001; 82271; 82550; 82570; 82803; 82810; 82948; 83605; 83735; 83880; 84100; 84134; 84145; 84156; 84300; 84439; 84443; 84540; 85018; 85025; 85610; 85730; 87040; 87081; 87088; 87207; 92508; 92616; 93005; 93925; 93970; 94640; 94660; 94760; 96365; 96366; 96367; 96368; 96375; 97110; 97161; 97530; 99291; G0378; J0692; J0696; J1170; J1250; J1644; J1720; J1940; J2001; J2060; J2212; J2270; J2405; J2543; J3010; J3370; J7040; J7626; P9047